=== PATIENT | male | born 1960 | race Caucasian/White ===

== ENCOUNTER 2017-03-09 13:55 | Inpatient (IN) | payer OTHER, MEDICAID ==
[~2017-03-09] VITALS: Ht 170.2 cm; Wt 98.8 kg
[2017-03-09] MEDS ORDERED: PLEASE ENTER HEIGHT AND WEIGHT MC SCH (14:30)
[2017-03-09] MEDS ORDERED: PLEASE ENTER ALLERGIES MC SCH (14:30)
[2017-03-09] MEDS ORDERED: SODIUM CHLORIDE FLUSH 10ML SYR IVF ONE (14:30)
[2017-03-09 14:54] LABS: MEAN CORPUSCULAR HGB CONC 33.5 g/dL (33.2-36.2); MEAN CORPUSCULAR VOLUME 95.7 fL (81-97); MEAN PLATELET VOLUME 7.5 fL (7.4-10.4); PLATELET COUNT 279 x10^3/uL (130-400); RED BLOOD COUNT 4.56 x10^6/uL (4.38-5.82); RED CELL DISTRIBUTION WIDTH 16.6 % (9.4-14.8)
[2017-03-09 15:04] LABS: INTERNATIONAL NORMALIZED RATIO 0.98 (0.93-1.1); PROTHROMBIN TIME 10.1 Seconds (9.6-11.5)
[2017-03-09 15:07] LABS: ALANINE AMINOTRANSFERASE 46 U/L (12-78); ALBUMIN 2.5 g/dL (3.4-5.0); ANION GAP 11 mmol/L (5-15); CALCIUM 8.3 mg/dL (8.5-10.1); CHLORIDE 91 mmol/L (98-107); CREATININE 0.72 mg/dL (0.7-1.3)
[2017-03-09 15:11] LABS: ALKALINE PHOSPHATASE 89 U/L (45-117); BILIRUBIN,TOTAL 0.9 mg/dL (0.2-1.0); TOTAL PROTEIN 8.7 g/dL (6.4-8.2)
[2017-03-09] MEDS ORDERED: MORPHINE SULFATE 4 MG/ML, 1ML ONE (15:11)
[2017-03-09 15:17] LABS: BASOPHILS # (AUTO) 0.03 x10^3/uL (0-0.1); BASOPHILS % (AUTO) 0 % (0-1); EOSINOPHILS # (AUTO) 0.03 x10^3/uL (0-0.4); EOSINOPHILS % (AUTO) 0 % (1-7); LYMPHOCYTES # (AUTO) 1.31 x10^3/uL (1-3.4); LYMPHOCYTES % (AUTO) 11 % (22-44); MD MORPH REVIEW ONLY; MONOCYTES # (AUTO) 1.72 x10^3/uL (0.2-0.8); MONOCYTES % (AUTO) 14 % (2-9); NEUTROPHILS # (AUTO) 8.95 x10^3/uL (1.8-6.8); NEUTROPHILS % (AUTO) 74 % (42-75); TOXIC GRAN 1+
[2017-03-09 15:18] LABS: <PLATELET ESTIMATE> ADEQUATE; <PLT MORPHOLOGY> NORMAL PLT MORPH; ANISOCYTOSIS 1+
[2017-03-09] MEDS ORDERED: ONDANSETRON 2MG/ML, 2ML IVPush ONE (15:30)
[2017-03-09] MEDS ORDERED: MORPHINE SULFATE 4 MG/ML, 1ML IVPush PRN (15:30)
[2017-03-09] MEDS ORDERED: MULT-658 PO (15:38)
[2017-03-09] MEDS ORDERED: XARELTO PO (15:38)
[2017-03-09] MEDS ORDERED: PIPERACILLIN/TAZO/PMX 4.5GM 100 ML IVPB ONE (16:00)
[2017-03-09] MEDS ORDERED: PIPERACILLIN/TAZO/PMX 3.375GM 50 ML ONE (16:00)
[2017-03-09] MEDS ORDERED: SODIUM CHLORIDE 0.9% 1,000ML IVBOLUS ONE (16:00)
[2017-03-09] MEDS ORDERED: VANCOMYCIN PER PHARMACY MC ONE (16:00)
[2017-03-09] MEDS ORDERED: VANCOMYCIN 2,000 MG in SODIUM CHLORIDE 0.9% 500 ML IV ONE (16:00)
[2017-03-09] MEDS ORDERED: PHARMACOKINETIC CONSULTATION MC ONE (16:00)
[2017-03-09] MEDS ORDERED: SODIUM CHLORIDE 0.9% 1,000 ML IV ONE (16:04)
[2017-03-09] MEDS ORDERED: SODIUM CHLORIDE FLUSH 10ML SYR IVF PRN (16:30)
[2017-03-09] MEDS ORDERED: ENOXAPARIN 100 MG/ML SQ ONE (17:30)
[2017-03-09] MEDS ORDERED: SODIUM CHLORIDE 0.9% 1,000 ML IV SCH (17:31)
[2017-03-09] MEDS ORDERED: ONDANSETRON 2MG/ML, 2ML IVPush PRN (18:00)
[2017-03-09] MEDS ORDERED: DOCUSATE 100 MG CAPSULE PO PRN (18:00)
[2017-03-09] MEDS: NICOTINE 14MG/24 HR PATCH.TD24 TD SCH (18:00)
[2017-03-09] MEDS ORDERED: LABETALOL 5MG/ML, 20ML IVPush PRN (18:00)
[2017-03-09] MEDS ORDERED: ENALAPRILAT 1.25 MG/ML, 2ML IVPush PRN (18:00)
[2017-03-09] MEDS ORDERED: ONDANSETRON ODT 4 MG PO PRN (18:00)
[2017-03-09 18:37] LABS: CULTURE INDICATED? YES; MICROSCOPIC INDICATED
[2017-03-09] MEDS ORDERED: WARFARIN 7.5 MG TABLET PO-COUM ONE (19:30)
[2017-03-09] MEDS: FAMOTIDINE 20 MG TABLET PO SCH (19:39)
[2017-03-09] MEDS: CLINDAMYCIN PMX 600MG/50ML 50 ML IV SCH (19:40)
[2017-03-09] MEDS: HYDROcodone/APAP 5/325 TABLET PO PRN ×2 (19:40→23:32)
[2017-03-09 21:05] VITALS: BP 129/75
[2017-03-10] MEDS: CLINDAMYCIN PMX 600MG/50ML 50 ML IV SCH ×2 (00:09→06:04)
[2017-03-10 01:35] VITALS: BP 136/66
[2017-03-10] MEDS: ENOXAPARIN 100 MG/ML SQ SCH ×2 (06:03→17:54)
[2017-03-10] MEDS: HYDROcodone/APAP 5/325 TABLET PO PRN ×4 (06:04→21:22)
[2017-03-10 06:38] VITALS: BP 116/76
[2017-03-10 06:44] LABS: BASOPHILS # (AUTO) 0.03 x10^3/uL (0-0.1); BASOPHILS % (AUTO) 0 % (0-1); EOSINOPHILS # (AUTO) 0.05 x10^3/uL (0-0.4); EOSINOPHILS % (AUTO) 1 % (1-7); LYMPHOCYTES # (AUTO) 1.15 x10^3/uL (1-3.4); LYMPHOCYTES % (AUTO) 11 % (22-44); MD NO; MEAN CORPUSCULAR HEMOGLOBIN 32.2 pg (27.5-34.5); MEAN CORPUSCULAR VOLUME 97.6 fL (81-97); MEAN PLATELET VOLUME 7.6 fL (7.4-10.4); MONOCYTES # (AUTO) 1.35 x10^3/uL (0.2-0.8); MONOCYTES % (AUTO) 13 % (2-9); NEUTROPHILS # (AUTO) 7.65 x10^3/uL (1.8-6.8); NEUTROPHILS % (AUTO) 75 % (42-75); PLATELET COUNT 201 x10^3/uL (130-400); RED CELL DISTRIBUTION WIDTH 16.5 % (9.4-14.8)
[2017-03-10 06:47] LABS: INTERNATIONAL NORMALIZED RATIO 1.15 (0.93-1.1); PROTHROMBIN TIME 11.8 Seconds (9.6-11.5)
[2017-03-10 06:52] LABS: ALBUMIN 1.8 g/dL (3.4-5.0); ANION GAP 9 mmol/L (5-15); CALCIUM 7.5 mg/dL (8.5-10.1); CHLORIDE 95 mmol/L (98-107)
[2017-03-10 06:54] LABS: ALANINE AMINOTRANSFERASE 29 U/L (12-78); ALKALINE PHOSPHATASE 65 U/L (45-117); BILIRUBIN,TOTAL 1.3 mg/dL (0.2-1.0); CREATININE 0.41 mg/dL (0.7-1.3); TOTAL PROTEIN 6.3 g/dL (6.4-8.2)
[2017-03-10] MEDS ORDERED: PIPERACILLIN/TAZO/PMX 4.5GM 100 ML IV SCH (09:00)
[2017-03-10] MEDS ORDERED: MAGNESIUM OXIDE 400 MG TABLET PO SCH (09:00)
[2017-03-10] MEDS: FAMOTIDINE 20 MG TABLET PO SCH ×2 (09:27→21:23)
[2017-03-10] MEDS ORDERED: PLEASE ENTER ALLERGIES MC SCH (09:30)
[2017-03-10] MEDS ORDERED: MAGNESIUM SULFATE PMX 4GM/100M 100 ML IV ONE (09:36)
[2017-03-10] MEDS: NEUTRA PHOS K 250 MG TABLET PO SCH ×3 (10:47→21:22)
[2017-03-10] MEDS: MAGNESIUM OXIDE 400 MG TABLET PO SCH (10:47)
[2017-03-10] MEDS: WARFARIN MODERAT DOSE PROTOCOL XX SCH (12:00)
[2017-03-10] MEDS ORDERED: CEFTAROLINE 600 MG in SODIUM CHLORIDE 0.9% 100 ML IV SCH (12:30)
[2017-03-10] MEDS: GABAPENTIN 300 MG CAPSULE PO SCH ×3 (13:55→21:23)
[2017-03-10 15:07] VITALS: BP 112/69
[2017-03-10] MEDS: PIPERACILLIN/TAZO/PMX 4.5GM 100 ML IV SCH ×2 (15:16→21:22)
[2017-03-10] MEDS: LINEZOLID PMX 600MG/300ML 300 ML IV SCH (16:02)
[2017-03-10] MEDS: NICOTINE 14MG/24 HR PATCH.TD24 TD SCH (16:41)
[2017-03-10] MEDS ORDERED: WARFARIN 7.5 MG TABLET PO-COUM ONE (18:00)
[2017-03-10 19:26] VITALS: BP 104/57
[2017-03-11 00:26] VITALS: BP 102/56
[2017-03-11] MEDS: HYDROcodone/APAP 5/325 TABLET PO PRN ×5 (03:14→22:42)
[2017-03-11] MEDS: PIPERACILLIN/TAZO/PMX 4.5GM 100 ML IV SCH ×3 (03:15→17:48)
[2017-03-11] MEDS: ENOXAPARIN 100 MG/ML SQ SCH ×2 (04:31→17:49)
[2017-03-11] MEDS: LINEZOLID PMX 600MG/300ML 300 ML IV SCH ×2 (04:31→18:22)
[2017-03-11 06:20] LABS: INTERNATIONAL NORMALIZED RATIO 1.28 (0.93-1.1); PROTHROMBIN TIME 13.1 Seconds (9.6-11.5)
[2017-03-11 06:35] VITALS: BP 104/57
[2017-03-11] MEDS: MAGNESIUM OXIDE 400 MG TABLET PO SCH (09:00)
[2017-03-11] MEDS: FAMOTIDINE 20 MG TABLET PO SCH ×2 (09:45→21:20)
[2017-03-11] MEDS: NEUTRA PHOS K 250 MG TABLET PO SCH ×3 (09:45→21:20)
[2017-03-11] MEDS: GABAPENTIN 300 MG CAPSULE PO SCH ×3 (09:45→21:20)
[2017-03-11] MEDS: WARFARIN MODERAT DOSE PROTOCOL XX SCH (12:00)
[2017-03-11 12:05] VITALS: BP 105/56
[2017-03-11] MEDS ORDERED: WARFARIN 5 MG TABLET PO-COUM ONE (18:00)
[2017-03-11] MEDS: NICOTINE 14MG/24 HR PATCH.TD24 TD SCH (18:00)
[2017-03-11 19:24] VITALS: BP 114/71
[2017-03-12] MEDS: PIPERACILLIN/TAZO/PMX 4.5GM 100 ML IV SCH ×4 (00:07→19:57)
[2017-03-12 01:29] VITALS: BP 107/55
[2017-03-12] MEDS: HYDROcodone/APAP 5/325 TABLET PO PRN ×2 (02:18→09:51)
[2017-03-12] MEDS: LINEZOLID PMX 600MG/300ML 300 ML IV SCH ×2 (04:35→18:05)
[2017-03-12] MEDS: ENOXAPARIN 100 MG/ML SQ SCH ×2 (04:35→17:00)
[2017-03-12 05:26] LABS: BASOPHILS # (AUTO) 0.04 x10^3/uL (0-0.1); BASOPHILS % (AUTO) 0 % (0-1); EOSINOPHILS % (AUTO) 1 % (1-7); LYMPHOCYTES # (AUTO) 1.65 x10^3/uL (1-3.4); LYMPHOCYTES % (AUTO) 18 % (22-44); MD NO; MEAN CORPUSCULAR HEMOGLOBIN 32.8 pg (27.5-34.5); MEAN CORPUSCULAR HGB CONC 33.7 g/dL (33.2-36.2); MEAN CORPUSCULAR VOLUME 97.1 fL (81-97); MEAN PLATELET VOLUME 8.1 fL (7.4-10.4); MONOCYTES # (AUTO) 1.37 x10^3/uL (0.2-0.8); MONOCYTES % (AUTO) 15 % (2-9); NEUTROPHILS # (AUTO) 5.91 x10^3/uL (1.8-6.8); NEUTROPHILS % (AUTO) 65 % (42-75); PLATELET COUNT 257 x10^3/uL (130-400); RED CELL DISTRIBUTION WIDTH 16.5 % (9.4-14.8)
[2017-03-12 05:27] LABS: INTERNATIONAL NORMALIZED RATIO 1.58 (0.93-1.1); PROTHROMBIN TIME 16.1 Seconds (9.6-11.5)
[2017-03-12 05:35] LABS: ALANINE AMINOTRANSFERASE 17 U/L (12-78); ALBUMIN 1.6 g/dL (3.4-5.0); ANION GAP 5 mmol/L (5-15); CALCIUM 7.3 mg/dL (8.5-10.1); CHLORIDE 100 mmol/L (98-107); CREATININE 0.38 mg/dL (0.7-1.3)
[2017-03-12 05:37] LABS: ALKALINE PHOSPHATASE 62 U/L (45-117); BILIRUBIN,TOTAL 0.3 mg/dL (0.2-1.0); TOTAL PROTEIN 6.2 g/dL (6.4-8.2)
[2017-03-12 07:43] VITALS: BP 117/72
[2017-03-12] MEDS: FAMOTIDINE 20 MG TABLET PO SCH ×2 (09:53→21:17)
[2017-03-12] MEDS: GABAPENTIN 300 MG CAPSULE PO SCH ×3 (09:53→20:59)
[2017-03-12] MEDS: NEUTRA PHOS K 250 MG TABLET PO SCH ×3 (09:53→20:59)
[2017-03-12] MEDS: MAGNESIUM OXIDE 400 MG TABLET PO SCH (09:53)
[2017-03-12] MEDS: WARFARIN MODERAT DOSE PROTOCOL XX SCH (12:00)
[2017-03-12 13:00] VITALS: BP 102/60
[2017-03-12] MEDS ORDERED: DIPHENHYDRAMINE 25 MG CAPSULE PO ONE (14:00)
[2017-03-12] MEDS ORDERED: PHYTONADIONE 10 MG/ML, 1ML IM ONE (15:00)
[2017-03-12] MEDS ORDERED: MAGNESIUM CITRATE 300ML ORAL SOL PO ONE (16:00)
[2017-03-12] MEDS ORDERED: LORazepam 2 MG/ML, 1ML IVPush ONE (17:30)
[2017-03-12] MEDS ORDERED: WARFARIN 7.5 MG TABLET PO-COUM ONE (18:00)
[2017-03-12] MEDS: NICOTINE 14MG/24 HR PATCH.TD24 TD SCH (18:00)
[2017-03-12 20:17] VITALS: BP 120/78
[2017-03-13] MEDS: LORazepam 1MG TABLET PO PRN (00:24)
[2017-03-13 01:12] VITALS: BP 123/78
[2017-03-13] MEDS: PIPERACILLIN/TAZO/PMX 4.5GM 100 ML IV SCH ×4 (02:12→23:49)
[2017-03-13] MEDS: LINEZOLID PMX 600MG/300ML 300 ML IV SCH ×2 (03:57→16:00)
[2017-03-13 05:17] LABS: BASOPHILS # (AUTO) 0.05 x10^3/uL (0-0.1); BASOPHILS % (AUTO) 1 % (0-1); EOSINOPHILS % (AUTO) 3 % (1-7); LYMPHOCYTES # (AUTO) 1.82 x10^3/uL (1-3.4); LYMPHOCYTES % (AUTO) 25 % (22-44); MD NO; MEAN CORPUSCULAR HEMOGLOBIN 32.3 pg (27.5-34.5); MEAN CORPUSCULAR HGB CONC 33.2 g/dL (33.2-36.2); MEAN CORPUSCULAR VOLUME 97.3 fL (81-97); MEAN PLATELET VOLUME 7.6 fL (7.4-10.4); MONOCYTES # (AUTO) 1.21 x10^3/uL (0.2-0.8); MONOCYTES % (AUTO) 16 % (2-9); NEUTROPHILS % (AUTO) 56 % (42-75); PLATELET COUNT 299 x10^3/uL (130-400); RED CELL DISTRIBUTION WIDTH 16.9 % (9.4-14.8)
[2017-03-13 05:27] LABS: INTERNATIONAL NORMALIZED RATIO 1.11 (0.93-1.1); PROTHROMBIN TIME 11.4 Seconds (9.6-11.5)
[2017-03-13 05:33] LABS: CHLORIDE 100 mmol/L (98-107)
[2017-03-13 05:41] LABS: ALANINE AMINOTRANSFERASE 19 U/L (12-78); ALBUMIN 1.5 g/dL (3.4-5.0); ALKALINE PHOSPHATASE 51 U/L (45-117); ANION GAP 6 mmol/L (5-15); BILIRUBIN,TOTAL 0.5 mg/dL (0.2-1.0); CALCIUM 7.8 mg/dL (8.5-10.1); CREATININE 0.35 mg/dL (0.7-1.3); TOTAL PROTEIN 6.2 g/dL (6.4-8.2)
[2017-03-13 07:45] VITALS: BP 130/82
[2017-03-13] MEDS: MAGNESIUM OXIDE 400 MG TABLET PO SCH (07:56)
[2017-03-13] MEDS: GABAPENTIN 300 MG CAPSULE PO SCH ×3 (07:56→23:50)
[2017-03-13] MEDS: NEUTRA PHOS K 250 MG TABLET PO SCH ×3 (07:57→23:49)
[2017-03-13] MEDS: FAMOTIDINE 20 MG TABLET PO SCH ×2 (07:57→23:50)
[2017-03-13] MEDS ORDERED: MIDAZOLAM 1 MG/ML, 2ML ONE (09:05)
[2017-03-13] MEDS ORDERED: FENTANYL PF 100 MCG/2ML ONE ×2 (09:05→11:01)
[2017-03-13] MEDS ORDERED: PROPOFOL 10 MG/ML, 20ML ONE (09:25)
[2017-03-13] MEDS ORDERED: GLYCOPYRROLATE 0.2MG/1ML, 5ML ONE (09:25)
[2017-03-13] MEDS ORDERED: NEOSTIGMINE 1 MG/ML, 10ML ONE (09:25)
[2017-03-13] MEDS ORDERED: ONDANSETRON 2MG/ML, 2ML ONE ×2 (09:25→10:44)
[2017-03-13] MEDS ORDERED: SUCCINYLCHOLINE 20 MG/ML, 10ML ONE (09:25)
[2017-03-13] MEDS ORDERED: ROCURONIUM 10 MG/ML,10ML ONE (09:25)
[2017-03-13] MEDS ORDERED: EPHEDRINE 50 MG/ML, 1ML IVPush PRN (11:00)
[2017-03-13] MEDS ORDERED: KETOROLAC 30 MG/1 ML IV PRN (11:00)
[2017-03-13] MEDS ORDERED: METOPROLOL 1 MG/ML, 5ML IV PRN (11:00)
[2017-03-13] MEDS ORDERED: MIDAZOLAM 1 MG/ML, 2ML IV PRN (11:00)
[2017-03-13] MEDS ORDERED: MEPERIDINE/PF 25MG/0.5ML IVPush PRN (11:00)
[2017-03-13] MEDS ORDERED: FENTANYL PF 100 MCG/2ML IV PRN (11:00)
[2017-03-13] MEDS ORDERED: DIAZEPAM 5 MG/ML, 2ML IVPush PRN (11:00)
[2017-03-13] MEDS ORDERED: LABETALOL 5MG/ML, 20ML IV PRN (11:00)
[2017-03-13] MEDS ORDERED: ALBUTEROL SULFATE 2.5 MG/3 ML NPPB PRN (11:00)
[2017-03-13] MEDS ORDERED: ALBUTEROL/IPRATROPIUM 2.5MG/0.5MG, 3 ML NPPB PRN (11:00)
[2017-03-13] MEDS ORDERED: HYDROmorphone 1 MG/ML, 1ML IV PRN (11:00)
[2017-03-13] MEDS ORDERED: ONDANSETRON 2MG/ML, 2ML IVPush PRN (11:00)
[2017-03-13] MEDS ORDERED: PROMETHAZINE 25 MG/ML, 1ML IV PRN (11:00)
[2017-03-13] MEDS ORDERED: hydrALAzine 20 MG/ML, 1ML IV PRN (11:00)
[2017-03-13] MEDS ORDERED: HYDROmorphone 2 MG/ML, 1ML ONE (11:01)
[2017-03-13 12:55] VITALS: BP 138/90
[2017-03-13] MEDS: NICOTINE 14MG/24 HR PATCH.TD24 TD SCH (18:00)
[2017-03-13 19:55] VITALS: BP 111/75
[2017-03-14] MEDS ORDERED: SODIUM CHLORIDE 0.9% 1,000 ML IV SCH
[2017-03-14 00:24] VITALS: BP 115/75
[2017-03-14] MEDS: LORazepam 1MG TABLET PO PRN ×3 (04:09→22:30)
[2017-03-14 04:57] VITALS: BP 129/79
[2017-03-14] MEDS: PIPERACILLIN/TAZO/PMX 4.5GM 100 ML IV SCH ×3 (05:22→17:32)
[2017-03-14] MEDS ORDERED: MIDAZOLAM 1 MG/ML, 2ML ONE (06:36)
[2017-03-14] MEDS ORDERED: FENTANYL PF 250 MCG/5ML ONE (06:36)
[2017-03-14] MEDS ORDERED: ROCURONIUM 10 MG/ML,10ML ONE (07:46)
[2017-03-14] MEDS ORDERED: GLYCOPYRROLATE 0.2MG/1ML, 5ML ONE (07:46)
[2017-03-14] MEDS ORDERED: CEFAZOLIN 1,000 MG ONE (07:46)
[2017-03-14] MEDS ORDERED: PROPOFOL 10 MG/ML, 20ML ONE (07:46)
[2017-03-14] MEDS ORDERED: SUCCINYLCHOLINE 20 MG/ML, 10ML ONE (07:46)
[2017-03-14] MEDS ORDERED: ONDANSETRON 2MG/ML, 2ML ONE (07:46)
[2017-03-14] MEDS ORDERED: DEXAMETHASONE 4 MG/ML, 1ML ONE (07:46)
[2017-03-14] MEDS ORDERED: NEOSTIGMINE 1 MG/ML, 10ML ONE (07:46)
[2017-03-14] MEDS ORDERED: MEPERIDINE/PF 25MG/0.5ML IVPush PRN (08:00)
[2017-03-14] MEDS ORDERED: hydrALAzine 20 MG/ML, 1ML IV PRN (08:00)
[2017-03-14] MEDS ORDERED: METOPROLOL 1 MG/ML, 5ML IV PRN (08:00)
[2017-03-14] MEDS ORDERED: PROMETHAZINE 25 MG/ML, 1ML IV PRN (08:00)
[2017-03-14] MEDS ORDERED: ALBUTEROL SULFATE 2.5 MG/3 ML NPPB PRN (08:00)
[2017-03-14] MEDS ORDERED: FENTANYL PF 100 MCG/2ML IV PRN (08:00)
[2017-03-14] MEDS ORDERED: HYDROmorphone 1 MG/ML, 1ML IV PRN (08:00)
[2017-03-14] MEDS ORDERED: OXYcodone 5 MG/5 ML ORAL.SOL UDC PO PRN (08:00)
[2017-03-14] MEDS ORDERED: ACETAMINOPHEN 325 MG TABLET PO PRN (08:00)
[2017-03-14] MEDS ORDERED: LORazepam 2 MG/ML, 1ML IVPush PRN (08:00)
[2017-03-14] MEDS: FAMOTIDINE 20 MG TABLET PO SCH ×2 (09:48→21:36)
[2017-03-14] MEDS: GABAPENTIN 300 MG CAPSULE PO SCH ×3 (09:48→21:36)
[2017-03-14] MEDS: NEUTRA PHOS K 250 MG TABLET PO SCH ×3 (09:48→21:36)
[2017-03-14] MEDS: MAGNESIUM OXIDE 400 MG TABLET PO SCH (09:48)
[2017-03-14 10:00] VITALS: BP 141/88
[2017-03-14 13:20] VITALS: BP 123/75
[2017-03-14] MEDS: NICOTINE 14MG/24 HR PATCH.TD24 TD SCH (17:28)
[2017-03-14 20:20] VITALS: BP 101/63
[2017-03-14 23:54] VITALS: BP 118/70
[2017-03-15] MEDS: PIPERACILLIN/TAZO/PMX 4.5GM 100 ML IV SCH ×4 (02:43→22:16)
[2017-03-15] MEDS: LORazepam 1MG TABLET PO PRN ×4 (03:16→22:17)
[2017-03-15 03:49] VITALS: BP 124/76
[2017-03-15 06:40] VITALS: BP 121/70
[2017-03-15] MEDS: MAGNESIUM OXIDE 400 MG TABLET PO SCH (08:19)
[2017-03-15] MEDS: GABAPENTIN 300 MG CAPSULE PO SCH ×3 (08:19→22:16)
[2017-03-15] MEDS: FAMOTIDINE 20 MG TABLET PO SCH ×2 (08:19→22:16)
[2017-03-15] MEDS: NEUTRA PHOS K 250 MG TABLET PO SCH ×3 (08:20→22:16)
[2017-03-15 14:00] VITALS: BP 122/72
[2017-03-15] MEDS: NICOTINE 14MG/24 HR PATCH.TD24 TD SCH (15:23)
[2017-03-15 21:59] VITALS: BP 128/82
[2017-03-16] MEDS: LORazepam 1MG TABLET PO PRN ×5 (02:38→21:23)
[2017-03-16] MEDS: PIPERACILLIN/TAZO/PMX 4.5GM 100 ML IV SCH ×4 (03:23→21:23)
[2017-03-16 03:39] VITALS: BP 136/86
[2017-03-16] MEDS: NEUTRA PHOS K 250 MG TABLET PO SCH ×3 (08:35→21:22)
[2017-03-16] MEDS: MAGNESIUM OXIDE 400 MG TABLET PO SCH (08:35)
[2017-03-16] MEDS: FAMOTIDINE 20 MG TABLET PO SCH ×2 (08:35→21:22)
[2017-03-16] MEDS: GABAPENTIN 300 MG CAPSULE PO SCH ×3 (08:35→21:21)
[2017-03-16 08:37] VITALS: BP 141/87
[2017-03-16 14:41] VITALS: BP 135/76
[2017-03-16] MEDS: NICOTINE 14MG/24 HR PATCH.TD24 TD SCH (16:41)
[2017-03-16 20:00] VITALS: BP 129/75
[2017-03-17] MEDS: LORazepam 1MG TABLET PO PRN ×5 (02:52→20:31)
[2017-03-17 02:58] VITALS: BP 129/70
[2017-03-17] MEDS: PIPERACILLIN/TAZO/PMX 4.5GM 100 ML IV SCH ×4 (04:00→22:47)
[2017-03-17 04:56] LABS: BASOPHILS % (AUTO) 1 % (0-1); EOSINOPHILS # (AUTO) 0.22 x10^3/uL (0-0.4); EOSINOPHILS % (AUTO) 3 % (1-7); LYMPHOCYTES # (AUTO) 2.12 x10^3/uL (1-3.4); LYMPHOCYTES % (AUTO) 28 % (22-44); MD NO; MEAN CORPUSCULAR HEMOGLOBIN 32.4 pg (27.5-34.5); MEAN CORPUSCULAR HGB CONC 33.3 g/dL (33.2-36.2); MEAN CORPUSCULAR VOLUME 97.2 fL (81-97); MEAN PLATELET VOLUME 7.4 fL (7.4-10.4); MONOCYTES # (AUTO) 1.02 x10^3/uL (0.2-0.8); MONOCYTES % (AUTO) 13 % (2-9); NEUTROPHILS # (AUTO) 4.25 x10^3/uL (1.8-6.8); NEUTROPHILS % (AUTO) 55 % (42-75); PLATELET COUNT 426 x10^3/uL (130-400); RED BLOOD COUNT 2.94 x10^6/uL (4.38-5.82); RED CELL DISTRIBUTION WIDTH 16.2 % (9.4-14.8)
[2017-03-17 04:59] LABS: ALANINE AMINOTRANSFERASE 23 U/L (12-78); ALBUMIN 1.6 g/dL (3.4-5.0); ANION GAP 7 mmol/L (5-15); CALCIUM 8.2 mg/dL (8.5-10.1); CHLORIDE 100 mmol/L (98-107)
[2017-03-17 05:01] LABS: ALKALINE PHOSPHATASE 59 U/L (45-117); BILIRUBIN,TOTAL 0.2 mg/dL (0.2-1.0); TOTAL PROTEIN 6.2 g/dL (6.4-8.2)
[2017-03-17 07:09] VITALS: BP 147/82
[2017-03-17] MEDS: GABAPENTIN 300 MG CAPSULE PO SCH ×3 (10:31→20:31)
[2017-03-17] MEDS: FAMOTIDINE 20 MG TABLET PO SCH ×2 (10:31→20:31)
[2017-03-17] MEDS: MAGNESIUM OXIDE 400 MG TABLET PO SCH (10:31)
[2017-03-17] MEDS: NEUTRA PHOS K 250 MG TABLET PO SCH ×3 (10:31→20:31)
[2017-03-17 11:58] LABS: HCT (SEDRATE) 29.7 % (39.2-51.8)
[2017-03-17 14:00] VITALS: BP 127/73
[2017-03-17] MEDS: NICOTINE 14MG/24 HR PATCH.TD24 TD SCH (18:00)
[2017-03-17 19:34] VITALS: BP 138/80
[2017-03-18] MEDS: LORazepam 1MG TABLET PO PRN ×6 (01:09→21:33)
[2017-03-18] MEDS: PIPERACILLIN/TAZO/PMX 4.5GM 100 ML IV SCH ×4 (04:22→21:39)
[2017-03-18 05:00] VITALS: BP 117/69
[2017-03-18 09:10] VITALS: BP 151/80
[2017-03-18] MEDS: MAGNESIUM OXIDE 400 MG TABLET PO SCH (09:27)
[2017-03-18] MEDS: FAMOTIDINE 20 MG TABLET PO SCH ×2 (09:27→21:33)
[2017-03-18] MEDS: GABAPENTIN 300 MG CAPSULE PO SCH ×3 (09:27→21:33)
[2017-03-18] MEDS: NEUTRA PHOS K 250 MG TABLET PO SCH ×3 (09:28→21:33)
[2017-03-18] MEDS ORDERED: ENOXAPARIN 40 MG/0.4 ML SQ SCH (13:00)
[2017-03-18 17:33] VITALS: BP 123/69
[2017-03-18] MEDS: NICOTINE 14MG/24 HR PATCH.TD24 TD SCH (17:36)
[2017-03-18 20:51] VITALS: BP 125/77
[2017-03-19] MEDS: LORazepam 1MG TABLET PO PRN ×6 (01:32→22:46)
[2017-03-19 01:36] VITALS: BP 116/69
[2017-03-19] MEDS: PIPERACILLIN/TAZO/PMX 4.5GM 100 ML IV SCH ×4 (04:37→21:33)
[2017-03-19] MEDS: FAMOTIDINE 20 MG TABLET PO SCH ×2 (08:06→21:32)
[2017-03-19] MEDS: NEUTRA PHOS K 250 MG TABLET PO SCH ×3 (08:06→21:32)
[2017-03-19] MEDS: MAGNESIUM OXIDE 400 MG TABLET PO SCH (08:06)
[2017-03-19] MEDS: GABAPENTIN 300 MG CAPSULE PO SCH ×3 (08:06→21:32)
[2017-03-19] MEDS ORDERED: Enoxaparin 1 mg/kg protocol SQ SCH (10:00)
[2017-03-19 10:15] VITALS: BP 121/60
[2017-03-19] MEDS ORDERED: ENOXAPARIN 100 MG/ML SQ SCH (10:30)
[2017-03-19 11:16] LABS: INTERNATIONAL NORMALIZED RATIO 1.04 (0.93-1.1); PROTHROMBIN TIME 10.7 Seconds (9.6-11.5)
[2017-03-19 12:04] VITALS: BP 116/73
[2017-03-19] MEDS: ENOXAPARIN 100 MG/ML SQ SCH (12:59)
[2017-03-19] MEDS ORDERED: WARFARIN 7.5 MG TABLET PO-COUM ONE (18:00)
[2017-03-19] MEDS: NICOTINE 14MG/24 HR PATCH.TD24 TD SCH (18:14)
[2017-03-19 20:39] VITALS: BP 110/67
[2017-03-20] MEDS: ENOXAPARIN 100 MG/ML SQ SCH ×2 (02:37→15:00)
[2017-03-20] MEDS: LORazepam 1MG TABLET PO PRN ×6 (02:51→22:54)
[2017-03-20 03:01] VITALS: BP 117/76
[2017-03-20] MEDS: PIPERACILLIN/TAZO/PMX 4.5GM 100 ML IV SCH ×4 (03:48→21:48)
[2017-03-20 05:50] LABS: INTERNATIONAL NORMALIZED RATIO 1.04 (0.93-1.1); PROTHROMBIN TIME 10.7 Seconds (9.6-11.5)
[2017-03-20 05:53] LABS: BASOPHILS # (AUTO) 0.08 x10^3/uL (0-0.1); BASOPHILS % (AUTO) 1 % (0-1); EOSINOPHILS # (AUTO) 0.23 x10^3/uL (0-0.4); EOSINOPHILS % (AUTO) 3 % (1-7); LYMPHOCYTES # (AUTO) 2.32 x10^3/uL (1-3.4); LYMPHOCYTES % (AUTO) 30 % (22-44); MD NO; MEAN CORPUSCULAR HEMOGLOBIN 31.8 pg (27.5-34.5); MEAN CORPUSCULAR HGB CONC 33.1 g/dL (33.2-36.2); MEAN CORPUSCULAR VOLUME 95.9 fL (81-97); MEAN PLATELET VOLUME 7.5 fL (7.4-10.4); MONOCYTES # (AUTO) 0.73 x10^3/uL (0.2-0.8); MONOCYTES % (AUTO) 10 % (2-9); NEUTROPHILS # (AUTO) 4.33 x10^3/uL (1.8-6.8); NEUTROPHILS % (AUTO) 56 % (42-75); PLATELET COUNT 549 x10^3/uL (130-400); RED BLOOD COUNT 3.47 x10^6/uL (4.38-5.82); RED CELL DISTRIBUTION WIDTH 16.3 % (9.4-14.8)
[2017-03-20 05:59] LABS: ALBUMIN 2.1 g/dL (3.4-5.0); ANION GAP 6 mmol/L (5-15); CALCIUM 8.5 mg/dL (8.5-10.1); CHLORIDE 99 mmol/L (98-107)
[2017-03-20 06:04] LABS: ALANINE AMINOTRANSFERASE 20 U/L (12-78); ALKALINE PHOSPHATASE 66 U/L (45-117); BILIRUBIN,TOTAL 0.4 mg/dL (0.2-1.0); CREATININE 0.54 mg/dL (0.7-1.3); TOTAL PROTEIN 7.8 g/dL (6.4-8.2)
[2017-03-20 08:20] VITALS: BP 106/56
[2017-03-20] MEDS: MAGNESIUM OXIDE 400 MG TABLET PO SCH (09:35)
[2017-03-20] MEDS: FAMOTIDINE 20 MG TABLET PO SCH ×2 (09:35→21:48)
[2017-03-20] MEDS: NEUTRA PHOS K 250 MG TABLET PO SCH ×3 (09:35→21:48)
[2017-03-20] MEDS: GABAPENTIN 300 MG CAPSULE PO SCH ×3 (09:35→21:48)
[2017-03-20 13:41] VITALS: BP 109/70
[2017-03-20] MEDS: NICOTINE 14MG/24 HR PATCH.TD24 TD SCH (16:48)
[2017-03-20] MEDS ORDERED: WARFARIN 7.5 MG TABLET PO-COUM ONE (17:00)
[2017-03-20 22:48] VITALS: BP 116/76
[2017-03-21] MEDS: ENOXAPARIN 100 MG/ML SQ SCH ×2 (02:43→16:46)
[2017-03-21 02:50] VITALS: BP 126/83
[2017-03-21] MEDS: PIPERACILLIN/TAZO/PMX 4.5GM 100 ML IV SCH ×3 (04:03→16:50)
[2017-03-21] MEDS: LORazepam 1MG TABLET PO PRN ×5 (04:08→20:47)
[2017-03-21 05:44] LABS: INTERNATIONAL NORMALIZED RATIO 1.09 (0.93-1.1); PROTHROMBIN TIME 11.2 Seconds (9.6-11.5)
[2017-03-21] MEDS: FAMOTIDINE 20 MG TABLET PO SCH ×2 (08:26→20:47)
[2017-03-21] MEDS: GABAPENTIN 300 MG CAPSULE PO SCH ×3 (08:26→20:47)
[2017-03-21] MEDS: MAGNESIUM OXIDE 400 MG TABLET PO SCH (08:26)
[2017-03-21] MEDS: NEUTRA PHOS K 250 MG TABLET PO SCH ×3 (08:27→20:47)
[2017-03-21 08:30] VITALS: BP 119/82
[2017-03-21] MEDS: WARFARIN MODERAT DOSE PROTOCOL XX SCH (12:12)
[2017-03-21 14:30] VITALS: BP 106/66
[2017-03-21] MEDS: NICOTINE 14MG/24 HR PATCH.TD24 TD SCH (16:51)
[2017-03-21] MEDS ORDERED: WARFARIN 5 MG TABLET PO-COUM SCH (18:00)
[2017-03-21 19:26] VITALS: BP 113/68
[2017-03-22] MEDS: PIPERACILLIN/TAZO/PMX 4.5GM 100 ML IV SCH ×5 (00:19→22:13)
[2017-03-22 00:26] VITALS: BP 119/77
[2017-03-22] MEDS: ENOXAPARIN 100 MG/ML SQ SCH ×2 (02:06→15:12)
[2017-03-22 05:13] LABS: INTERNATIONAL NORMALIZED RATIO 1.13 (0.93-1.1); PROTHROMBIN TIME 11.6 Seconds (9.6-11.5)
[2017-03-22 07:28] VITALS: BP 122/77
[2017-03-22] MEDS: GABAPENTIN 300 MG CAPSULE PO SCH ×3 (07:54→22:13)
[2017-03-22] MEDS: LORazepam 1MG TABLET PO PRN ×3 (07:54→17:42)
[2017-03-22] MEDS: NEUTRA PHOS K 250 MG TABLET PO SCH ×3 (07:54→22:13)
[2017-03-22] MEDS: FAMOTIDINE 20 MG TABLET PO SCH ×2 (07:55→22:13)
[2017-03-22] MEDS: MAGNESIUM OXIDE 400 MG TABLET PO SCH (07:55)
[2017-03-22] MEDS: WARFARIN MODERAT DOSE PROTOCOL XX SCH (11:39)
[2017-03-22 14:30] VITALS: BP 108/70
[2017-03-22] MEDS: NICOTINE 14MG/24 HR PATCH.TD24 TD SCH (17:42)
[2017-03-22] MEDS ORDERED: WARFARIN 10 MG TABLET PO-COUM SCH (18:00)
[2017-03-22 19:27] VITALS: BP 119/73
[2017-03-22] MEDS: TEMAZEPAM 15 MG CAPSULE PO PRN (22:13)
[2017-03-23 00:21] VITALS: BP 150/84
[2017-03-23] MEDS: ENOXAPARIN 100 MG/ML SQ SCH ×2 (01:59→14:16)
[2017-03-23] MEDS: PIPERACILLIN/TAZO/PMX 4.5GM 100 ML IV SCH ×4 (04:07→20:05)
[2017-03-23 05:36] LABS: INTERNATIONAL NORMALIZED RATIO 1.13 (0.93-1.1); PROTHROMBIN TIME 11.6 Seconds (9.6-11.5)
[2017-03-23 07:22] VITALS: BP 123/66
[2017-03-23] MEDS: FAMOTIDINE 20 MG TABLET PO SCH ×2 (08:10→19:59)
[2017-03-23] MEDS: NEUTRA PHOS K 250 MG TABLET PO SCH ×3 (08:10→19:59)
[2017-03-23] MEDS: MAGNESIUM OXIDE 400 MG TABLET PO SCH (08:10)
[2017-03-23] MEDS: GABAPENTIN 300 MG CAPSULE PO SCH ×3 (08:10→19:59)
[2017-03-23] MEDS: LORazepam 1MG TABLET PO PRN ×2 (09:48→16:06)
[2017-03-23] MEDS: WARFARIN MODERAT DOSE PROTOCOL XX SCH (11:39)
[2017-03-23 14:30] VITALS: BP 142/84
[2017-03-23] MEDS: NICOTINE 14MG/24 HR PATCH.TD24 TD SCH (18:00)
[2017-03-23] MEDS ORDERED: WARFARIN 7.5 MG TABLET PO-COUM SCH (18:00)
[2017-03-23 19:20] VITALS: BP 118/65
[2017-03-23] MEDS: TEMAZEPAM 15 MG CAPSULE PO PRN (23:00)
[2017-03-24] MEDS: ENOXAPARIN 100 MG/ML SQ SCH ×2 (02:57→14:16)
[2017-03-24] MEDS: PIPERACILLIN/TAZO/PMX 4.5GM 100 ML IV SCH ×3 (02:57→16:02)
[2017-03-24 04:00] VITALS: BP 119/73
[2017-03-24 05:27] LABS: INTERNATIONAL NORMALIZED RATIO 1.4 (0.93-1.1); PROTHROMBIN TIME 14.3 Seconds (9.6-11.5)
[2017-03-24] MEDS: LORazepam 1MG TABLET PO PRN ×2 (05:54→14:16)
[2017-03-24] MEDS: MAGNESIUM OXIDE 400 MG TABLET PO SCH ×2 (09:00→10:02)
[2017-03-24] MEDS: NEUTRA PHOS K 250 MG TABLET PO SCH ×4 (09:00→21:43)
[2017-03-24 09:18] VITALS: BP 114/64
[2017-03-24] MEDS: GABAPENTIN 300 MG CAPSULE PO SCH ×3 (10:02→21:44)
[2017-03-24] MEDS: FAMOTIDINE 20 MG TABLET PO SCH ×2 (10:02→21:43)
[2017-03-24] MEDS: WARFARIN MODERAT DOSE PROTOCOL XX SCH (12:00)
[2017-03-24 14:07] VITALS: BP 124/70
[2017-03-24] MEDS: NICOTINE 14MG/24 HR PATCH.TD24 TD SCH (18:00)
[2017-03-24] MEDS ORDERED: WARFARIN 10 MG TABLET PO-COUM ONE (18:00)
[2017-03-24 19:42] VITALS: BP 122/72
[2017-03-25 02:25] VITALS: BP 106/68
[2017-03-25] MEDS: PIPERACILLIN/TAZO 4.5 GM in SODIUM CHLORIDE 0.9% 100 ML IV SCH ×4 (03:08→22:09)
[2017-03-25] MEDS: ENOXAPARIN 100 MG/ML SQ SCH ×2 (03:08→14:55)
[2017-03-25] MEDS: DIPHENHYDRAMINE 50 MG CAPSULE PO PRN (03:49)
[2017-03-25 05:42] LABS: BASOPHILS # (AUTO) 0.09 x10^3/uL (0-0.1); BASOPHILS % (AUTO) 1 % (0-1); EOSINOPHILS # (AUTO) 0.42 x10^3/uL (0-0.4); EOSINOPHILS % (AUTO) 6 % (1-7); LYMPHOCYTES # (AUTO) 1.85 x10^3/uL (1-3.4); LYMPHOCYTES % (AUTO) 28 % (22-44); MD NO; MEAN CORPUSCULAR HEMOGLOBIN 31.1 pg (27.5-34.5); MEAN CORPUSCULAR HGB CONC 32.7 g/dL (33.2-36.2); MEAN CORPUSCULAR VOLUME 94.9 fL (81-97); MEAN PLATELET VOLUME 7.9 fL (7.4-10.4); MONOCYTES # (AUTO) 0.85 x10^3/uL (0.2-0.8); MONOCYTES % (AUTO) 13 % (2-9); NEUTROPHILS # (AUTO) 3.38 x10^3/uL (1.8-6.8); NEUTROPHILS % (AUTO) 51 % (42-75); PLATELET COUNT 637 x10^3/uL (130-400); RED BLOOD COUNT 3.47 x10^6/uL (4.38-5.82); RED CELL DISTRIBUTION WIDTH 16.4 % (9.4-14.8)
[2017-03-25 05:50] LABS: INTERNATIONAL NORMALIZED RATIO 1.62 (0.93-1.1); PROTHROMBIN TIME 16.7 Seconds (9.6-11.5)
[2017-03-25 05:57] LABS: CHLORIDE 102 mmol/L (98-107)
[2017-03-25 06:37] LABS: ALANINE AMINOTRANSFERASE 16 U/L (12-78); ALBUMIN 2.3 g/dL (3.4-5.0); ALKALINE PHOSPHATASE 103 U/L (45-117); ANION GAP 8 mmol/L (5-15); BILIRUBIN,TOTAL 0.7 mg/dL (0.2-1.0); CALCIUM 9.2 mg/dL (8.5-10.1); CREATININE 0.48 mg/dL (0.7-1.3); TOTAL PROTEIN 8.1 g/dL (6.4-8.2)
[2017-03-25 09:00] VITALS: BP 121/75
[2017-03-25] MEDS: MAGNESIUM OXIDE 400 MG TABLET PO SCH (09:00)
[2017-03-25] MEDS: NEUTRA PHOS K 250 MG TABLET PO SCH ×4 (09:00→21:00)
[2017-03-25] MEDS: GABAPENTIN 300 MG CAPSULE PO SCH ×3 (09:08→20:42)
[2017-03-25] MEDS: FAMOTIDINE 20 MG TABLET PO SCH ×2 (09:09→20:42)
[2017-03-25] MEDS ORDERED: PIPERACILLIN/TAZO 4.5 GM in SODIUM CHLORIDE 0.9% 100 ML IV SCH (10:00)
[2017-03-25] MEDS: WARFARIN MODERAT DOSE PROTOCOL XX SCH (12:00)
[2017-03-25] MEDS ORDERED: morphine SULFATE 10 MG/ML, 1ML IVPush ONE (14:00)
[2017-03-25 14:55] VITALS: BP 114/55
[2017-03-25] MEDS: LORazepam 1MG TABLET PO PRN (17:14)
[2017-03-25] MEDS: NICOTINE 14MG/24 HR PATCH.TD24 TD SCH (17:15)
[2017-03-25] MEDS ORDERED: WARFARIN 7.5 MG TABLET PO-COUM ONE (18:00)
[2017-03-25 19:37] VITALS: BP 113/68
[2017-03-26] MEDS: ENOXAPARIN 100 MG/ML SQ SCH ×2 (02:25→14:00)
[2017-03-26 02:26] VITALS: BP 123/64
[2017-03-26] MEDS: PIPERACILLIN/TAZO 4.5 GM in SODIUM CHLORIDE 0.9% 100 ML IV SCH ×4 (04:19→21:55)
[2017-03-26 05:17] LABS: INTERNATIONAL NORMALIZED RATIO 1.85 (0.93-1.1)
[2017-03-26 08:55] VITALS: BP 107/57
[2017-03-26] MEDS: NEUTRA PHOS K 250 MG TABLET PO SCH ×3 (09:00→21:00)
[2017-03-26] MEDS: MAGNESIUM OXIDE 400 MG TABLET PO SCH (09:00)
[2017-03-26] MEDS: GABAPENTIN 300 MG CAPSULE PO SCH ×3 (09:45→21:54)
[2017-03-26] MEDS: FAMOTIDINE 20 MG TABLET PO SCH ×2 (09:45→21:54)
[2017-03-26] MEDS: LORazepam 1MG TABLET PO PRN ×2 (09:55→16:28)
[2017-03-26] MEDS: WARFARIN MODERAT DOSE PROTOCOL XX SCH (12:00)
[2017-03-26 15:51] VITALS: BP 119/70
[2017-03-26] MEDS: NICOTINE 14MG/24 HR PATCH.TD24 TD SCH (18:00)
[2017-03-26] MEDS ORDERED: WARFARIN 7.5 MG TABLET PO-COUM ONE (18:00)
[2017-03-26 19:50] VITALS: BP 118/73
[2017-03-27] MEDS: ENOXAPARIN 100 MG/ML SQ SCH ×2 (01:26→22:45)
[2017-03-27] MEDS: LORazepam 1MG TABLET PO PRN ×4 (04:15→22:43)
[2017-03-27] MEDS: PIPERACILLIN/TAZO 4.5 GM in SODIUM CHLORIDE 0.9% 100 ML IV SCH ×4 (04:15→21:57)
[2017-03-27 04:16] VITALS: BP 141/89
[2017-03-27 05:47] LABS: INTERNATIONAL NORMALIZED RATIO 1.36 (0.93-1.1); PROTHROMBIN TIME 14.1 Seconds (9.6-11.5)
[2017-03-27 07:54] VITALS: BP 113/71
[2017-03-27] MEDS: FAMOTIDINE 20 MG TABLET PO SCH ×2 (09:00→19:33)
[2017-03-27] MEDS: NEUTRA PHOS K 250 MG TABLET PO SCH ×3 (09:00→21:00)
[2017-03-27] MEDS: GABAPENTIN 300 MG CAPSULE PO SCH ×3 (09:00→21:00)
[2017-03-27] MEDS: MAGNESIUM OXIDE 400 MG TABLET PO SCH (09:00)
[2017-03-27] MEDS ORDERED: FENTANYL PF 100 MCG/2ML ONE ×2 (11:25→12:53)
[2017-03-27] MEDS ORDERED: MIDAZOLAM 1 MG/ML, 2ML ONE (11:25)
[2017-03-27] MEDS: WARFARIN MODERAT DOSE PROTOCOL XX SCH (12:00)
[2017-03-27] MEDS ORDERED: ONDANSETRON 2MG/ML, 2ML ONE ×2 (12:21→12:22)
[2017-03-27] MEDS ORDERED: DEXAMETHASONE 4 MG/ML, 1ML ONE ×2 (12:21→12:22)
[2017-03-27] MEDS ORDERED: PROPOFOL 10 MG/ML, 20ML ONE (12:21)
[2017-03-27] MEDS ORDERED: PROMETHAZINE 25 MG/ML, 1ML IV PRN (12:30)
[2017-03-27] MEDS ORDERED: LABETALOL 5MG/ML, 20ML IV PRN (12:30)
[2017-03-27] MEDS ORDERED: MEPERIDINE/PF 25MG/0.5ML IVPush PRN (12:30)
[2017-03-27] MEDS ORDERED: OXYcodone 5 MG/5 ML ORAL.SOL UDC PO PRN (12:30)
[2017-03-27] MEDS ORDERED: ONDANSETRON 2MG/ML, 2ML IVPush PRN (12:30)
[2017-03-27] MEDS ORDERED: MIDAZOLAM 1 MG/ML, 2ML IV PRN (12:30)
[2017-03-27] MEDS ORDERED: ALBUTEROL SULFATE 2.5 MG/3 ML NPPB PRN (12:30)
[2017-03-27] MEDS ORDERED: hydrALAzine 20 MG/ML, 1ML IV PRN (12:30)
[2017-03-27] MEDS ORDERED: HYDROmorphone 2 MG/ML, 1ML ONE (12:53)
[2017-03-27] MEDS: FENTANYL PF 100 MCG/2ML IV PRN ×2 (12:56→13:06)
[2017-03-27] MEDS: HYDROmorphone 1 MG/ML, 1ML IV PRN ×2 (12:58→13:06)
[2017-03-27 14:38] VITALS: BP 119/74
[2017-03-27] MEDS: NICOTINE 14MG/24 HR PATCH.TD24 TD SCH (16:56)
[2017-03-27] MEDS ORDERED: WARFARIN 7.5 MG TABLET PO-COUM ONE (18:00)
[2017-03-27 18:43] VITALS: BP 121/73
[2017-03-28 02:51] VITALS: BP 139/70
[2017-03-28] MEDS: LORazepam 1MG TABLET PO PRN ×4 (03:07→21:31)
[2017-03-28] MEDS: PIPERACILLIN/TAZO 4.5 GM in SODIUM CHLORIDE 0.9% 100 ML IV SCH ×4 (04:21→22:19)
[2017-03-28 05:31] LABS: INTERNATIONAL NORMALIZED RATIO 1.73 (0.93-1.1); PROTHROMBIN TIME 17.8 Seconds (9.6-11.5)
[2017-03-28 06:56] VITALS: BP 136/70
[2017-03-28] MEDS: NEUTRA PHOS K 250 MG TABLET PO SCH ×4 (10:00→21:35)
[2017-03-28] MEDS: ENOXAPARIN 100 MG/ML SQ SCH ×2 (10:00→21:31)
[2017-03-28] MEDS: FAMOTIDINE 20 MG TABLET PO SCH ×2 (10:00→21:31)
[2017-03-28] MEDS: MAGNESIUM OXIDE 400 MG TABLET PO SCH (10:00)
[2017-03-28] MEDS: GABAPENTIN 300 MG CAPSULE PO SCH ×3 (10:00→21:30)
[2017-03-28] MEDS: WARFARIN MODERAT DOSE PROTOCOL XX SCH (12:00)
[2017-03-28 15:40] VITALS: BP 127/76
[2017-03-28] MEDS: NICOTINE 14MG/24 HR PATCH.TD24 TD SCH (16:32)
[2017-03-28] MEDS ORDERED: WARFARIN 7.5 MG TABLET PO-COUM ONE (18:00)
[2017-03-28 20:55] VITALS: BP 132/79
[2017-03-29 02:57] VITALS: BP 143/88
[2017-03-29] MEDS: PIPERACILLIN/TAZO 4.5 GM in SODIUM CHLORIDE 0.9% 100 ML IV SCH ×4 (04:55→22:16)
[2017-03-29 05:52] LABS: INTERNATIONAL NORMALIZED RATIO 2.09 (0.93-1.1); PROTHROMBIN TIME 21.4 Seconds (9.6-11.5)
[2017-03-29 06:05] LABS: CHLORIDE 107 mmol/L (98-107)
[2017-03-29 06:10] LABS: ALBUMIN 2.4 g/dL (3.4-5.0); ANION GAP 9 mmol/L (5-15); CALCIUM 8.8 mg/dL (8.5-10.1)
[2017-03-29 08:24] LABS: BASOPHILS # (AUTO) 0.23 x10^3/uL (0-0.1); BASOPHILS % (AUTO) 4 % (0-1); EOSINOPHILS % (AUTO) 11 % (1-7); LYMPHOCYTES # (AUTO) 3.15 x10^3/uL (1-3.4); LYMPHOCYTES % (AUTO) 48 % (22-44); MD NO; MEAN CORPUSCULAR HEMOGLOBIN 30.8 pg (27.5-34.5); MEAN CORPUSCULAR HGB CONC 32.6 g/dL (33.2-36.2); MEAN CORPUSCULAR VOLUME 94.5 fL (81-97); MEAN PLATELET VOLUME 8.5 fL (7.4-10.4); MONOCYTES # (AUTO) 0.74 x10^3/uL (0.2-0.8); MONOCYTES % (AUTO) 11 % (2-9); NEUTROPHILS # (AUTO) 1.71 x10^3/uL (1.8-6.8); NEUTROPHILS % (AUTO) 26 % (42-75); PLATELET COUNT 528 x10^3/uL (130-400); RED BLOOD COUNT 3.46 x10^6/uL (4.38-5.82); RED CELL DISTRIBUTION WIDTH 17.1 % (9.4-14.8)
[2017-03-29 08:56] VITALS: BP 148/83
[2017-03-29] MEDS: GABAPENTIN 300 MG CAPSULE PO SCH ×3 (09:06→22:15)
[2017-03-29] MEDS: MAGNESIUM OXIDE 400 MG TABLET PO SCH (09:06)
[2017-03-29] MEDS: FAMOTIDINE 20 MG TABLET PO SCH ×2 (09:06→22:15)
[2017-03-29] MEDS: NEUTRA PHOS K 250 MG TABLET PO SCH ×3 (09:07→22:16)
[2017-03-29] MEDS: ENOXAPARIN 100 MG/ML SQ SCH ×2 (09:07→22:16)
[2017-03-29] MEDS: LORazepam 1MG TABLET PO PRN ×4 (09:07→22:24)
[2017-03-29] MEDS: WARFARIN MODERAT DOSE PROTOCOL XX SCH (12:00)
[2017-03-29] MEDS ORDERED: morphine SULFATE 10 MG/ML, 1ML ONE (13:27)
[2017-03-29] MEDS ORDERED: MORPHINE SULFATE 4 MG/ML, 1ML IVPush ONE (13:30)
[2017-03-29 14:31] VITALS: BP 124/73
[2017-03-29] MEDS: NICOTINE 14MG/24 HR PATCH.TD24 TD SCH (16:34)
[2017-03-29] MEDS ORDERED: WARFARIN 10 MG TABLET PO-COUM ONE (18:00)
[2017-03-29 19:15] VITALS: BP 112/69
[2017-03-30 02:30] VITALS: BP 117/75
[2017-03-30] MEDS: PIPERACILLIN/TAZO 4.5 GM in SODIUM CHLORIDE 0.9% 100 ML IV SCH ×4 (04:20→21:40)
[2017-03-30 06:06] LABS: INTERNATIONAL NORMALIZED RATIO 2.09 (0.93-1.1); PROTHROMBIN TIME 21.4 Seconds (9.6-11.5)
[2017-03-30 07:35] VITALS: BP 145/85
[2017-03-30] MEDS: FAMOTIDINE 20 MG TABLET PO SCH ×2 (08:11→22:10)
[2017-03-30] MEDS: ENOXAPARIN 100 MG/ML SQ SCH ×2 (08:11→21:39)
[2017-03-30] MEDS: LORazepam 1MG TABLET PO PRN ×4 (08:11→22:11)
[2017-03-30] MEDS: GABAPENTIN 300 MG CAPSULE PO SCH ×3 (08:11→21:39)
[2017-03-30] MEDS: MAGNESIUM OXIDE 400 MG TABLET PO SCH (08:12)
[2017-03-30] MEDS: NEUTRA PHOS K 250 MG TABLET PO SCH ×3 (08:12→21:39)
[2017-03-30] MEDS: WARFARIN MODERAT DOSE PROTOCOL XX SCH (12:00)
[2017-03-30] MEDS: NICOTINE 14MG/24 HR PATCH.TD24 TD SCH (16:52)
[2017-03-30] MEDS ORDERED: WARFARIN 10 MG TABLET PO-COUM ONE (18:00)
[2017-03-30 20:04] VITALS: BP 135/76
[2017-03-30] MEDS: DIPHENHYDRAMINE 50 MG CAPSULE PO PRN (22:49)
[2017-03-31 01:43] VITALS: BP 117/76
[2017-03-31] MEDS: PIPERACILLIN/TAZO 4.5 GM in SODIUM CHLORIDE 0.9% 100 ML IV SCH ×4 (03:56→22:48)
[2017-03-31 05:38] LABS: INTERNATIONAL NORMALIZED RATIO 1.77 (0.93-1.1); PROTHROMBIN TIME 18.2 Seconds (9.6-11.5)
[2017-03-31 08:04] VITALS: BP 146/84
[2017-03-31] MEDS: GABAPENTIN 300 MG CAPSULE PO SCH ×3 (08:05→20:18)
[2017-03-31] MEDS: FAMOTIDINE 20 MG TABLET PO SCH ×2 (08:06→20:18)
[2017-03-31] MEDS: ENOXAPARIN 100 MG/ML SQ SCH ×2 (08:07→20:19)
[2017-03-31] MEDS: NEUTRA PHOS K 250 MG TABLET PO SCH ×3 (08:10→20:19)
[2017-03-31] MEDS: LORazepam 1MG TABLET PO PRN ×4 (08:14→20:18)
[2017-03-31] MEDS: MAGNESIUM OXIDE 400 MG TABLET PO SCH (08:15)
[2017-03-31] MEDS: WARFARIN MODERAT DOSE PROTOCOL XX SCH (12:05)
[2017-03-31 14:52] VITALS: BP 123/74
[2017-03-31] MEDS ORDERED: WARFARIN 7.5 MG TABLET PO-COUM ONE (18:00)
[2017-03-31] MEDS: NICOTINE 14MG/24 HR PATCH.TD24 TD SCH (18:07)
[2017-03-31 19:53] VITALS: BP 113/71
[2017-04-01] MEDS: LORazepam 1MG TABLET PO PRN ×5 (02:17→20:37)
[2017-04-01 02:20] VITALS: BP 106/71
[2017-04-01] MEDS: PIPERACILLIN/TAZO 4.5 GM in SODIUM CHLORIDE 0.9% 100 ML IV SCH ×4 (04:40→22:33)
[2017-04-01 05:21] LABS: BASOPHILS # (AUTO) 0.12 x10^3/uL (0-0.1); BASOPHILS % (AUTO) 2 % (0-1); EOSINOPHILS # (AUTO) 0.85 x10^3/uL (0-0.4); EOSINOPHILS % (AUTO) 13 % (1-7); LYMPHOCYTES # (AUTO) 2.07 x10^3/uL (1-3.4); LYMPHOCYTES % (AUTO) 32 % (22-44); MD NO; MEAN CORPUSCULAR HEMOGLOBIN 30.9 pg (27.5-34.5); MEAN CORPUSCULAR HGB CONC 32.8 g/dL (33.2-36.2); MEAN CORPUSCULAR VOLUME 94.3 fL (81-97); MEAN PLATELET VOLUME 7.9 fL (7.4-10.4); MONOCYTES # (AUTO) 1.13 x10^3/uL (0.2-0.8); MONOCYTES % (AUTO) 17 % (2-9); NEUTROPHILS # (AUTO) 2.39 x10^3/uL (1.8-6.8); NEUTROPHILS % (AUTO) 37 % (42-75); PLATELET COUNT 480 x10^3/uL (130-400); RED BLOOD COUNT 3.54 x10^6/uL (4.38-5.82)
[2017-04-01 05:25] LABS: INTERNATIONAL NORMALIZED RATIO 1.78 (0.93-1.1); PROTHROMBIN TIME 18.3 Seconds (9.6-11.5)
[2017-04-01 05:31] LABS: CHLORIDE 105 mmol/L (98-107)
[2017-04-01 05:53] LABS: ALANINE AMINOTRANSFERASE 22 U/L (12-78); ALBUMIN 2.5 g/dL (3.4-5.0); ALKALINE PHOSPHATASE 110 U/L (45-117); ANION GAP 5 mmol/L (5-15); BILIRUBIN,TOTAL 0.2 mg/dL (0.2-1.0); CREATININE 0.48 mg/dL (0.7-1.3); TOTAL PROTEIN 7.9 g/dL (6.4-8.2)
[2017-04-01 06:13] LABS: HCT (SEDRATE) 33.4 % (39.2-51.8)
[2017-04-01 07:34] VITALS: BP 121/77
[2017-04-01] MEDS: FAMOTIDINE 20 MG TABLET PO SCH ×2 (09:19→20:48)
[2017-04-01] MEDS: DIPHENHYDRAMINE 50 MG CAPSULE PO PRN (09:19)
[2017-04-01] MEDS: GABAPENTIN 300 MG CAPSULE PO SCH ×3 (09:19→20:49)
[2017-04-01] MEDS: NEUTRA PHOS K 250 MG TABLET PO SCH ×3 (09:19→20:49)
[2017-04-01] MEDS: ENOXAPARIN 100 MG/ML SQ SCH (09:20)
[2017-04-01] MEDS: MAGNESIUM OXIDE 400 MG TABLET PO SCH (09:24)
[2017-04-01] MEDS: WARFARIN MODERAT DOSE PROTOCOL XX SCH (12:18)
[2017-04-01 14:40] VITALS: BP 130/70
[2017-04-01] MEDS ORDERED: WARFARIN 7.5 MG TABLET PO-COUM ONE (18:00)
[2017-04-01] MEDS: NICOTINE 14MG/24 HR PATCH.TD24 TD SCH (18:06)
[2017-04-01 20:29] VITALS: BP 120/75
[2017-04-01] MEDS: APIXABAN 5 MG TABLET PO SCH (20:48)
[2017-04-02 02:08] VITALS: BP 122/72
[2017-04-02] MEDS: LORazepam 1MG TABLET PO PRN ×5 (02:23→20:21)
[2017-04-02] MEDS: PIPERACILLIN/TAZO 4.5 GM in SODIUM CHLORIDE 0.9% 100 ML IV SCH ×4 (04:43→21:46)
[2017-04-02 05:54] LABS: INTERNATIONAL NORMALIZED RATIO 1.76 (0.93-1.1); PROTHROMBIN TIME 18.1 Seconds (9.6-11.5)
[2017-04-02] MEDS: FAMOTIDINE 20 MG TABLET PO SCH ×2 (08:32→20:20)
[2017-04-02] MEDS: GABAPENTIN 300 MG CAPSULE PO SCH ×3 (08:32→20:21)
[2017-04-02] MEDS: APIXABAN 5 MG TABLET PO SCH ×2 (08:33→20:20)
[2017-04-02] MEDS: NEUTRA PHOS K 250 MG TABLET PO SCH ×3 (08:33→20:20)
[2017-04-02] MEDS: MAGNESIUM OXIDE 400 MG TABLET PO SCH (08:33)
[2017-04-02 08:36] VITALS: BP 118/62
[2017-04-02 17:12] VITALS: BP 128/73
[2017-04-02] MEDS: NICOTINE 14MG/24 HR PATCH.TD24 TD SCH (18:18)
[2017-04-02 19:34] VITALS: BP 105/59
[2017-04-03] MEDS: LORazepam 1MG TABLET PO PRN ×6 (00:18→20:58)
[2017-04-03 01:58] VITALS: BP 117/74
[2017-04-03] MEDS: PIPERACILLIN/TAZO 4.5 GM in SODIUM CHLORIDE 0.9% 100 ML IV SCH ×4 (04:23→20:58)
[2017-04-03 06:13] LABS: INTERNATIONAL NORMALIZED RATIO 1.32 (0.93-1.1); PROTHROMBIN TIME 13.7 Seconds (9.6-11.5)
[2017-04-03 07:46] VITALS: BP 117/69
[2017-04-03] MEDS: APIXABAN 5 MG TABLET PO SCH ×2 (08:30→20:52)
[2017-04-03] MEDS: GABAPENTIN 300 MG CAPSULE PO SCH ×3 (08:30→20:51)
[2017-04-03] MEDS: FAMOTIDINE 20 MG TABLET PO SCH ×2 (08:30→20:51)
[2017-04-03] MEDS: NEUTRA PHOS K 250 MG TABLET PO SCH ×3 (08:30→20:51)
[2017-04-03] MEDS: MAGNESIUM OXIDE 400 MG TABLET PO SCH (08:31)
[2017-04-03 13:54] VITALS: BP 111/70
[2017-04-03] MEDS: NICOTINE 14MG/24 HR PATCH.TD24 TD SCH (18:00)
[2017-04-03 20:13] VITALS: BP 116/62
[2017-04-04] MEDS: LORazepam 1MG TABLET PO PRN ×5 (01:24→20:05)
[2017-04-04 02:07] VITALS: BP 116/65
[2017-04-04] MEDS: PIPERACILLIN/TAZO 4.5 GM in SODIUM CHLORIDE 0.9% 100 ML IV SCH ×4 (04:07→22:47)
[2017-04-04 07:05] VITALS: BP 112/69
[2017-04-04 07:56] LABS: INTERNATIONAL NORMALIZED RATIO 1.14 (0.93-1.1); PROTHROMBIN TIME 11.8 Seconds (9.6-11.5)
[2017-04-04] MEDS: FAMOTIDINE 20 MG TABLET PO SCH ×2 (08:57→20:05)
[2017-04-04] MEDS: NEUTRA PHOS K 250 MG TABLET PO SCH ×3 (08:58→20:06)
[2017-04-04] MEDS: GABAPENTIN 300 MG CAPSULE PO SCH ×3 (08:58→20:05)
[2017-04-04] MEDS: MAGNESIUM OXIDE 400 MG TABLET PO SCH (09:00)
[2017-04-04] MEDS: APIXABAN 5 MG TABLET PO SCH ×2 (09:00→20:05)
[2017-04-04 13:41] VITALS: BP 120/72
[2017-04-04] MEDS: NICOTINE 14MG/24 HR PATCH.TD24 TD SCH (17:04)
[2017-04-04 18:44] VITALS: BP 111/72
[2017-04-04] MEDS: DIPHENHYDRAMINE 50 MG CAPSULE PO PRN (19:45)
[2017-04-05] MEDS: LORazepam 1MG TABLET PO PRN ×6 (00:14→21:13)
[2017-04-05 01:30] VITALS: BP 95/60
[2017-04-05] MEDS: PIPERACILLIN/TAZO 4.5 GM in SODIUM CHLORIDE 0.9% 100 ML IV SCH ×4 (04:32→21:14)
[2017-04-05 07:22] LABS: INTERNATIONAL NORMALIZED RATIO 1.09 (0.93-1.1); PROTHROMBIN TIME 11.3 Seconds (9.6-11.5)
[2017-04-05 07:35] VITALS: BP 110/74
[2017-04-05] MEDS: FAMOTIDINE 20 MG TABLET PO SCH ×2 (08:31→21:12)
[2017-04-05] MEDS: GABAPENTIN 300 MG CAPSULE PO SCH ×3 (08:32→21:12)
[2017-04-05] MEDS: APIXABAN 5 MG TABLET PO SCH ×2 (08:32→21:12)
[2017-04-05] MEDS: NEUTRA PHOS K 250 MG TABLET PO SCH ×3 (08:32→21:13)
[2017-04-05] MEDS: MAGNESIUM OXIDE 400 MG TABLET PO SCH (08:44)
[2017-04-05 15:59] VITALS: BP 119/69
[2017-04-05] MEDS: NICOTINE 14MG/24 HR PATCH.TD24 TD SCH (16:12)
[2017-04-05 18:45] VITALS: BP 121/67
[2017-04-06] MEDS: LORazepam 1MG TABLET PO PRN ×4 (02:48→23:25)
[2017-04-06 02:59] VITALS: BP 119/74
[2017-04-06] MEDS: PIPERACILLIN/TAZO 4.5 GM in SODIUM CHLORIDE 0.9% 100 ML IV SCH ×4 (04:10→21:49)
[2017-04-06 05:52] LABS: INTERNATIONAL NORMALIZED RATIO 1.08 (0.93-1.1); PROTHROMBIN TIME 11.2 Seconds (9.6-11.5)
[2017-04-06 08:11] VITALS: BP 129/76
[2017-04-06] MEDS: FAMOTIDINE 20 MG TABLET PO SCH ×2 (08:26→21:49)
[2017-04-06] MEDS: GABAPENTIN 300 MG CAPSULE PO SCH ×3 (08:26→21:47)
[2017-04-06] MEDS: APIXABAN 5 MG TABLET PO SCH ×2 (08:26→21:48)
[2017-04-06] MEDS: MAGNESIUM OXIDE 400 MG TABLET PO SCH (08:27)
[2017-04-06] MEDS: NEUTRA PHOS K 250 MG TABLET PO SCH ×3 (08:27→21:49)
[2017-04-06 13:50] VITALS: BP 119/71
[2017-04-06] MEDS: NICOTINE 14MG/24 HR PATCH.TD24 TD SCH (18:00)
[2017-04-06 19:49] VITALS: BP 121/74
[2017-04-07 03:27] VITALS: BP 139/60
[2017-04-07] MEDS: PIPERACILLIN/TAZO 4.5 GM in SODIUM CHLORIDE 0.9% 100 ML IV SCH ×4 (03:56→23:20)
[2017-04-07 06:30] LABS: INTERNATIONAL NORMALIZED RATIO 1.08 (0.93-1.1); PROTHROMBIN TIME 11.2 Seconds (9.6-11.5)
[2017-04-07] MEDS: NEUTRA PHOS K 250 MG TABLET PO SCH ×3 (09:00→20:30)
[2017-04-07] MEDS: MAGNESIUM OXIDE 400 MG TABLET PO SCH (09:00)
[2017-04-07] MEDS: FAMOTIDINE 20 MG TABLET PO SCH ×2 (09:47→20:29)
[2017-04-07] MEDS: APIXABAN 5 MG TABLET PO SCH ×2 (09:48→20:30)
[2017-04-07] MEDS: LORazepam 1MG TABLET PO PRN ×3 (09:48→20:30)
[2017-04-07] MEDS: GABAPENTIN 300 MG CAPSULE PO SCH ×3 (09:50→20:30)
[2017-04-07 12:50] VITALS: BP 114/74
[2017-04-07] MEDS: NICOTINE 14MG/24 HR PATCH.TD24 TD SCH (18:00)
[2017-04-07 21:39] VITALS: BP 120/73
[2017-04-08 03:13] VITALS: BP 115/76
[2017-04-08] MEDS: LORazepam 1MG TABLET PO PRN ×4 (04:48→20:05)
[2017-04-08] MEDS: PIPERACILLIN/TAZO 4.5 GM in SODIUM CHLORIDE 0.9% 100 ML IV SCH ×4 (04:48→21:52)
[2017-04-08 07:33] LABS: BASOPHILS # (AUTO) 0.07 x10^3/uL (0-0.1); BASOPHILS % (AUTO) 1 % (0-1); EOSINOPHILS # (AUTO) 0.69 x10^3/uL (0-0.4); EOSINOPHILS % (AUTO) 11 % (1-7); LYMPHOCYTES # (AUTO) 2.28 x10^3/uL (1-3.4); LYMPHOCYTES % (AUTO) 37 % (22-44); MD NO; MEAN CORPUSCULAR HEMOGLOBIN 30.4 pg (27.5-34.5); MEAN CORPUSCULAR HGB CONC 32.8 g/dL (33.2-36.2); MEAN CORPUSCULAR VOLUME 92.7 fL (81-97); MEAN PLATELET VOLUME 7.3 fL (7.4-10.4); MONOCYTES # (AUTO) 1.03 x10^3/uL (0.2-0.8); MONOCYTES % (AUTO) 17 % (2-9); NEUTROPHILS % (AUTO) 34 % (42-75); PLATELET COUNT 404 x10^3/uL (130-400); RED BLOOD COUNT 3.85 x10^6/uL (4.38-5.82); RED CELL DISTRIBUTION WIDTH 16.5 % (9.4-14.8)
[2017-04-08 07:35] LABS: HCT (SEDRATE) 35.7 % (39.2-51.8)
[2017-04-08 07:43] LABS: INTERNATIONAL NORMALIZED RATIO 1.08 (0.93-1.1); PROTHROMBIN TIME 11.2 Seconds (9.6-11.5)
[2017-04-08 07:48] LABS: ALANINE AMINOTRANSFERASE 26 U/L (12-78); ALBUMIN 2.7 g/dL (3.4-5.0); ANION GAP 6 mmol/L (5-15); CALCIUM 8.9 mg/dL (8.5-10.1); CHLORIDE 105 mmol/L (98-107)
[2017-04-08 07:56] LABS: ALKALINE PHOSPHATASE 90 U/L (45-117); BILIRUBIN,TOTAL 0.4 mg/dL (0.2-1.0); CREATININE 0.57 mg/dL (0.7-1.3); TOTAL PROTEIN 8.2 g/dL (6.4-8.2)
[2017-04-08 08:12] VITALS: BP 110/64
[2017-04-08] MEDS: NEUTRA PHOS K 250 MG TABLET PO SCH ×4 (09:00→20:06)
[2017-04-08] MEDS: APIXABAN 5 MG TABLET PO SCH ×3 (09:00→20:04)
[2017-04-08] MEDS: MAGNESIUM OXIDE 400 MG TABLET PO SCH (09:00)
[2017-04-08] MEDS: FAMOTIDINE 20 MG TABLET PO SCH ×2 (09:15→20:04)
[2017-04-08] MEDS: GABAPENTIN 300 MG CAPSULE PO SCH ×3 (09:17→20:04)
[2017-04-08 13:53] VITALS: BP 116/82
[2017-04-08] MEDS: NICOTINE 14MG/24 HR PATCH.TD24 TD SCH (16:01)
[2017-04-08 19:19] VITALS: BP 117/67
[2017-04-09] MEDS: PIPERACILLIN/TAZO 4.5 GM in SODIUM CHLORIDE 0.9% 100 ML IV SCH ×4 (04:06→21:27)
[2017-04-09] MEDS: LORazepam 1MG TABLET PO PRN ×3 (04:40→18:51)
[2017-04-09 04:42] VITALS: BP 111/76
[2017-04-09 05:57] LABS: INTERNATIONAL NORMALIZED RATIO 1.03 (0.93-1.1); PROTHROMBIN TIME 10.7 Seconds (9.6-11.5)
[2017-04-09 07:46] VITALS: BP 109/71
[2017-04-09] MEDS: GABAPENTIN 300 MG CAPSULE PO SCH ×3 (08:38→21:26)
[2017-04-09] MEDS: NEUTRA PHOS K 250 MG TABLET PO SCH ×3 (08:38→21:00)
[2017-04-09] MEDS: FAMOTIDINE 20 MG TABLET PO SCH ×2 (08:38→21:27)
[2017-04-09] MEDS: APIXABAN 5 MG TABLET PO SCH ×2 (08:38→21:26)
[2017-04-09] MEDS: MAGNESIUM OXIDE 400 MG TABLET PO SCH (08:38)
[2017-04-09 12:43] VITALS: BP 121/69
[2017-04-09] MEDS: NICOTINE 14MG/24 HR PATCH.TD24 TD SCH (15:38)
[2017-04-09 20:12] VITALS: BP 125/76
[2017-04-10 02:54] VITALS: BP 111/70
[2017-04-10] MEDS: PIPERACILLIN/TAZO 4.5 GM in SODIUM CHLORIDE 0.9% 100 ML IV SCH ×4 (03:59→21:52)
[2017-04-10] MEDS: APIXABAN 5 MG TABLET PO SCH ×2 (08:54→21:01)
[2017-04-10] MEDS: NEUTRA PHOS K 250 MG TABLET PO SCH ×3 (08:54→20:56)
[2017-04-10] MEDS: MAGNESIUM OXIDE 400 MG TABLET PO SCH (08:54)
[2017-04-10] MEDS: GABAPENTIN 300 MG CAPSULE PO SCH ×3 (08:54→21:01)
[2017-04-10] MEDS: FAMOTIDINE 20 MG TABLET PO SCH ×2 (08:54→21:01)
[2017-04-10] MEDS: LORazepam 1MG TABLET PO PRN ×2 (08:55→21:04)
[2017-04-10 09:02] VITALS: BP 117/67
[2017-04-10 14:21] VITALS: BP 118/80
[2017-04-10] MEDS: NICOTINE 14MG/24 HR PATCH.TD24 TD SCH (16:29)
[2017-04-10 20:12] VITALS: BP 115/70
[2017-04-11] MEDS: PIPERACILLIN/TAZO 4.5 GM in SODIUM CHLORIDE 0.9% 100 ML IV SCH ×3 (04:18→16:14)
[2017-04-11 05:02] VITALS: BP 116/76
[2017-04-11 05:59] LABS: INTERNATIONAL NORMALIZED RATIO 1.09 (0.93-1.1); PROTHROMBIN TIME 11.3 Seconds (9.6-11.5)
[2017-04-11 08:05] VITALS: BP 114/73
[2017-04-11] MEDS: NEUTRA PHOS K 250 MG TABLET PO SCH ×3 (08:08→20:24)
[2017-04-11] MEDS: MAGNESIUM OXIDE 400 MG TABLET PO SCH (08:08)
[2017-04-11] MEDS: APIXABAN 5 MG TABLET PO SCH ×2 (08:09→20:24)
[2017-04-11] MEDS: GABAPENTIN 300 MG CAPSULE PO SCH ×3 (08:09→20:24)
[2017-04-11] MEDS: FAMOTIDINE 20 MG TABLET PO SCH ×2 (08:09→20:24)
[2017-04-11 10:24] VITALS: BP_SYST 0; BP_SYST 134; BP_DIAS 0; BP_DIAS 77
[2017-04-11 12:15] VITALS: BP 146/82
[2017-04-11] MEDS: NICOTINE 14MG/24 HR PATCH.TD24 TD SCH (16:15)
[2017-04-11 20:00] VITALS: BP 113/66
[2017-04-11] MEDS: PIPERACILLIN/TAZO/PMX 4.5GM 100 ML IV SCH (21:30)
[2017-04-12 02:00] VITALS: BP 115/75
[2017-04-12] MEDS: PIPERACILLIN/TAZO/PMX 4.5GM 100 ML IV SCH ×4 (04:00→21:34)
[2017-04-12] MEDS: NEUTRA PHOS K 250 MG TABLET PO SCH ×3 (08:30→21:00)
[2017-04-12] MEDS: MAGNESIUM OXIDE 400 MG TABLET PO SCH (08:31)
[2017-04-12] MEDS: GABAPENTIN 300 MG CAPSULE PO SCH ×3 (08:32→21:29)
[2017-04-12] MEDS: FAMOTIDINE 20 MG TABLET PO SCH ×2 (08:32→21:29)
[2017-04-12] MEDS: APIXABAN 5 MG TABLET PO SCH ×2 (08:32→21:29)
[2017-04-12 08:40] VITALS: BP 130/83
[2017-04-12 11:46] LABS: INTERNATIONAL NORMALIZED RATIO 1.06 (0.93-1.1)
[2017-04-12 14:44] VITALS: BP 118/77
[2017-04-12] MEDS: NICOTINE 14MG/24 HR PATCH.TD24 TD SCH (17:35)
[2017-04-12 18:27] VITALS: BP 146/77
[2017-04-13 00:34] VITALS: BP 133/77
[2017-04-13] MEDS: PIPERACILLIN/TAZO/PMX 4.5GM 100 ML IV SCH ×4 (04:07→22:18)
[2017-04-13 08:01] VITALS: BP 153/84
[2017-04-13] MEDS: APIXABAN 5 MG TABLET PO SCH ×2 (08:08→20:12)
[2017-04-13] MEDS: GABAPENTIN 300 MG CAPSULE PO SCH ×3 (08:08→20:12)
[2017-04-13] MEDS: FAMOTIDINE 20 MG TABLET PO SCH ×2 (08:09→20:13)
[2017-04-13] MEDS: MAGNESIUM OXIDE 400 MG TABLET PO SCH (08:09)
[2017-04-13] MEDS: NEUTRA PHOS K 250 MG TABLET PO SCH ×3 (08:09→20:13)
[2017-04-13 09:09] LABS: INTERNATIONAL NORMALIZED RATIO 1.05 (0.93-1.1); PROTHROMBIN TIME 10.9 Seconds (9.6-11.5)
[2017-04-13 13:53] VITALS: BP 125/75
[2017-04-13] MEDS: NICOTINE 14MG/24 HR PATCH.TD24 TD SCH (18:00)
[2017-04-13 19:24] VITALS: BP 130/70
[2017-04-14 01:28] VITALS: BP 111/63
[2017-04-14] MEDS: PIPERACILLIN/TAZO/PMX 4.5GM 100 ML IV SCH ×4 (03:52→21:32)
[2017-04-14 06:51] VITALS: BP 117/67
[2017-04-14] MEDS: FAMOTIDINE 20 MG TABLET PO SCH ×2 (08:38→21:33)
[2017-04-14] MEDS: GABAPENTIN 300 MG CAPSULE PO SCH ×3 (08:38→21:33)
[2017-04-14] MEDS: NEUTRA PHOS K 250 MG TABLET PO SCH ×3 (08:38→21:00)
[2017-04-14] MEDS: APIXABAN 5 MG TABLET PO SCH ×2 (08:38→21:33)
[2017-04-14] MEDS: MAGNESIUM OXIDE 400 MG TABLET PO SCH (08:38)
[2017-04-14 13:36] VITALS: BP 131/79
[2017-04-14] MEDS: NICOTINE 14MG/24 HR PATCH.TD24 TD SCH (16:50)
[2017-04-14 19:55] VITALS: BP 110/68
[2017-04-15 00:52] VITALS: BP 115/62
[2017-04-15] MEDS: PIPERACILLIN/TAZO/PMX 4.5GM 100 ML IV SCH ×3 (04:24→18:11)
[2017-04-15 05:33] LABS: BASOPHILS % (AUTO) 2 % (0-1); EOSINOPHILS # (AUTO) 0.86 x10^3/uL (0-0.4); EOSINOPHILS % (AUTO) 14 % (1-7); LYMPHOCYTES # (AUTO) 2.01 x10^3/uL (1-3.4); LYMPHOCYTES % (AUTO) 34 % (22-44); MD NO; MEAN CORPUSCULAR HEMOGLOBIN 30.4 pg (27.5-34.5); MEAN CORPUSCULAR HGB CONC 32.9 g/dL (33.2-36.2); MEAN CORPUSCULAR VOLUME 92.6 fL (81-97); MEAN PLATELET VOLUME 7.9 fL (7.4-10.4); MONOCYTES # (AUTO) 0.86 x10^3/uL (0.2-0.8); MONOCYTES % (AUTO) 14 % (2-9); NEUTROPHILS # (AUTO) 2.17 x10^3/uL (1.8-6.8); NEUTROPHILS % (AUTO) 36 % (42-75); PLATELET COUNT 397 x10^3/uL (130-400); RED BLOOD COUNT 3.94 x10^6/uL (4.38-5.82); RED CELL DISTRIBUTION WIDTH 16.2 % (9.4-14.8)
[2017-04-15 05:43] LABS: ALBUMIN 2.8 g/dL (3.4-5.0); ANION GAP 7 mmol/L (5-15); CALCIUM 8.9 mg/dL (8.5-10.1); CHLORIDE 104 mmol/L (98-107)
[2017-04-15 05:49] LABS: ALANINE AMINOTRANSFERASE 41 U/L (12-78); ALKALINE PHOSPHATASE 89 U/L (45-117); BILIRUBIN,TOTAL 0.6 mg/dL (0.2-1.0); C-REACTIVE PROTEIN, QUANT 0.59 mg/dL (0.02-0.49); TOTAL PROTEIN 8.2 g/dL (6.4-8.2)
[2017-04-15 06:14] LABS: HCT (SEDRATE) 36.5 % (39.2-51.8)
[2017-04-15 07:01] VITALS: BP 133/79
[2017-04-15] MEDS: APIXABAN 5 MG TABLET PO SCH ×2 (08:11→21:48)
[2017-04-15] MEDS: FAMOTIDINE 20 MG TABLET PO SCH ×2 (08:11→21:48)
[2017-04-15] MEDS: GABAPENTIN 300 MG CAPSULE PO SCH ×3 (08:11→21:48)
[2017-04-15] MEDS: MAGNESIUM OXIDE 400 MG TABLET PO SCH (08:12)
[2017-04-15] MEDS: NEUTRA PHOS K 250 MG TABLET PO SCH ×3 (08:12→21:00)
[2017-04-15 13:20] VITALS: BP 117/74
[2017-04-15] MEDS: NICOTINE 14MG/24 HR PATCH.TD24 TD SCH (18:08)
[2017-04-15 20:06] VITALS: BP 122/66
[2017-04-16 00:46] VITALS: BP 113/66
[2017-04-16] MEDS: PIPERACILLIN/TAZO/PMX 4.5GM 100 ML IV SCH ×4 (06:25→20:10)
[2017-04-16 07:32] VITALS: BP 143/97
[2017-04-16] MEDS: FAMOTIDINE 20 MG TABLET PO SCH ×2 (09:03→21:11)
[2017-04-16] MEDS: MAGNESIUM OXIDE 400 MG TABLET PO SCH (09:03)
[2017-04-16] MEDS: GABAPENTIN 300 MG CAPSULE PO SCH ×3 (09:03→21:11)
[2017-04-16] MEDS: NEUTRA PHOS K 250 MG TABLET PO SCH ×3 (09:03→21:00)
[2017-04-16] MEDS: APIXABAN 5 MG TABLET PO SCH ×2 (09:04→21:11)
[2017-04-16 14:05] VITALS: BP 117/74
[2017-04-16] MEDS: NICOTINE 14MG/24 HR PATCH.TD24 TD SCH (15:29)
[2017-04-16 19:22] VITALS: BP 148/85
[2017-04-17] MEDS: PIPERACILLIN/TAZO/PMX 4.5GM 100 ML IV SCH ×2 (01:45→07:30)
[2017-04-17 02:22] VITALS: BP 114/72
[2017-04-17 06:52] LABS: BASOPHILS # (AUTO) 0.09 x10^3/uL (0-0.1); BASOPHILS % (AUTO) 2 % (0-1); EOSINOPHILS # (AUTO) 0.91 x10^3/uL (0-0.4); EOSINOPHILS % (AUTO) 16 % (1-7); LYMPHOCYTES # (AUTO) 1.93 x10^3/uL (1-3.4); LYMPHOCYTES % (AUTO) 33 % (22-44); MD NO; MEAN CORPUSCULAR HEMOGLOBIN 30.2 pg (27.5-34.5); MEAN CORPUSCULAR HGB CONC 33.2 g/dL (33.2-36.2); MEAN PLATELET VOLUME 7.5 fL (7.4-10.4); MONOCYTES # (AUTO) 0.91 x10^3/uL (0.2-0.8); MONOCYTES % (AUTO) 16 % (2-9); NEUTROPHILS % (AUTO) 34 % (42-75); PLATELET COUNT 392 x10^3/uL (130-400); RED BLOOD COUNT 3.91 x10^6/uL (4.38-5.82); RED CELL DISTRIBUTION WIDTH 16.5 % (9.4-14.8)
[2017-04-17 07:05] LABS: ALANINE AMINOTRANSFERASE 38 U/L (12-78); ALBUMIN 2.7 g/dL (3.4-5.0); ANION GAP 6 mmol/L (5-15); CALCIUM 8.8 mg/dL (8.5-10.1); CHLORIDE 104 mmol/L (98-107); CREATININE 0.49 mg/dL (0.7-1.3)
[2017-04-17 07:07] LABS: ALKALINE PHOSPHATASE 91 U/L (45-117); BILIRUBIN,TOTAL 0.4 mg/dL (0.2-1.0); TOTAL PROTEIN 7.6 g/dL (6.4-8.2)
[2017-04-17 07:17] VITALS: BP 135/80
[2017-04-17] MEDS: MAGNESIUM OXIDE 400 MG TABLET PO SCH (09:00)
[2017-04-17] MEDS: APIXABAN 5 MG TABLET PO SCH (09:22)
[2017-04-17] MEDS: GABAPENTIN 300 MG CAPSULE PO SCH (09:22)
[2017-04-17] MEDS ORDERED: GABA300C10 PO (09:27)
[2017-04-17] MEDS ORDERED: NICO-486 TD (09:27)
[2017-04-17] MEDS ORDERED: APIX5TAB PO (09:27)
[2017-04-17] MEDS ORDERED: PIPE4.5V3 IV (09:40)
[2017-04-17 12:40] VITALS: BP 130/87
== END 2017-04-17 13:30 | DRG 853 ==
LOC: ED 15:06 → EDIP 16:05 → 3NE 18:53 → 4NOR 03-13 12:04 → DCLOUNGE 03-21 14:08 → 4NOR 03-21 14:44
PROVIDERS: ADMIT Hospitalist; ATTEND Internal Medicine
PROC: 0D1L4Z4 Bypass Transverse Colon to Cutaneous, Percutaneous Endoscopic Approach (ICD-10-PCS; principal; 2017-03-13 09:30)
PROC: 0JBC0ZZ Excision of Pelvic Region Subcutaneous Tissue and Fascia, Open Approach (ICD-10-PCS; 2017-03-14)
PROC: 0H9KXZZ Drainage of Right Lower Leg Skin, External Approach (ICD-10-PCS; 2017-03-27)
PROC: 02HV33Z Insertion of Infusion Device into Superior Vena Cava, Percutaneous Approach (ICD-10-PCS; 2017-04-15)
PROC: B548ZZA Ultrasonography of Superior Vena Cava, Guidance (ICD-10-PCS; 2017-04-15)
PROC: B5181ZA Fluoroscopy of Superior Vena Cava using Low Osmolar Contrast, Guidance (ICD-10-PCS; 2017-04-15)
DX: A41.50 Gram-negative sepsis, unspecified (principal); E43 Unspecified severe protein-calorie malnutrition; L89.319 Pressure ulcer of right buttock, unspecified stage; I11.0 Hypertensive heart disease with heart failure; I82.403 Acute embolism and thrombosis of unspecified deep veins of lower extremity, bilateral; E87.1 Hypo-osmolality and hyponatremia; E83.42 Hypomagnesemia; I50.9 Heart failure, unspecified; G62.9 Polyneuropathy, unspecified; L03.115 Cellulitis of right lower limb; K70.10 Alcoholic hepatitis without ascites; I82.411 Acute embolism and thrombosis of right femoral vein; L02.31 Cutaneous abscess of buttock; L03.116 Cellulitis of left lower limb; M86.9 Osteomyelitis, unspecified; N39.0 Urinary tract infection, site not specified; E86.0 Dehydration; L89.619 Pressure ulcer of right heel, unspecified stage; L97.519 Non-pressure chronic ulcer of other part of right foot with unspecified severity; R62.7 Adult failure to thrive; F12.90 Cannabis use, unspecified, uncomplicated; Z68.34 Body mass index [BMI] 34.0-34.9, adult; F10.20 Alcohol dependence, uncomplicated; M51.9 Unspecified thoracic, thoracolumbar and lumbosacral intervertebral disc disorder; H53.8 Other visual disturbances; R74.0 Nonspecific elevation of levels of transaminase and lactic acid dehydrogenase [LDH]; B96.1 Klebsiella pneumoniae [K. pneumoniae] as the cause of diseases classified elsewhere; B96.4 Proteus (mirabilis) (morganii) as the cause of diseases classified elsewhere; D63.8 Anemia in other chronic diseases classified elsewhere; F17.210 Nicotine dependence, cigarettes, uncomplicated; I25.2 Old myocardial infarction; Z79.01 Long term (current) use of anticoagulants; Z86.718 Personal history of other venous thrombosis and embolism; Z91.19 Patient's noncompliance with other medical treatment and regimen
CPT/HCPCS: 36415; 36569; 71010; 76937; 77001; 80048; 80053; 81001; 82040; 83036; 83605; 83735; 83880; 84100; 84145; 85014; 85018; 85025; 85610; 85651; 85730; 86140; 87040; 87070; 87075; 87077; 87086; 87176; 87186; 87205; 93005; 93925; 93970; 96374; C1729; J0690; J0712; J1100; J1170; J1650; J2020; J2250; J2405; J2543; J2704; J2710; J3010; J3370; J3430; J3490; C1751; J0330; J2060; J2270; J3475; J7030; J7040; Q0163

== ENCOUNTER 2018-01-29 20:26 | Emergency (ER) | payer MEDICAID, OTHER ==
[~2018-01-29] VITALS: Ht 188 cm; Wt 118.0 kg
[~2018-01-29 20:26] MED LIST: APIX5TAB PO; GABA300C10 PO; MULT-658 PO; NICO-486 TD; PIPE4.5V3 IV; XARELTO PO
[2018-01-29 22:33] VITALS: BP 183/84
== END 2018-01-29 22:35 | disposition home or self-care (01) ==
LOC: ED 21:51
DX: R20.2 Paresthesia of skin (principal); I50.9 Heart failure, unspecified
CPT/HCPCS: 99284

== ENCOUNTER 2018-09-30 17:04 | Inpatient (IN) | payer MEDICAID, OTHER ==
[~2018-09-30] VITALS: Ht 188 cm; Wt 124.5 kg
[2018-10-03 13:03] VITALS: BP 149/87
== END 2018-10-03 15:30 | disposition home health service (06) | DRG 603 ==
LOC: ED 19:11 → EDIP 20:22 → 3NE 20:26 → DCLOUNGE 10-03 15:10
PROVIDERS: ADMIT Family Medicine; ATTEND Family Medicine
DX: L03.115 Cellulitis of right lower limb (principal); E44.0 Moderate protein-calorie malnutrition; L03.116 Cellulitis of left lower limb; J44.9 Chronic obstructive pulmonary disease, unspecified; Z68.35 Body mass index [BMI] 35.0-35.9, adult; E66.01 Morbid (severe) obesity due to excess calories; E78.5 Hyperlipidemia, unspecified; E87.6 Hypokalemia; F12.90 Cannabis use, unspecified, uncomplicated; F17.210 Nicotine dependence, cigarettes, uncomplicated; G61.9 Inflammatory polyneuropathy, unspecified; I11.0 Hypertensive heart disease with heart failure; I25.10 Atherosclerotic heart disease of native coronary artery without angina pectoris; I50.9 Heart failure, unspecified; Z99.3 Dependence on wheelchair; E80.6 Other disorders of bilirubin metabolism
CPT/HCPCS: 36415; 80048; 80053; 83605; 83880; 85025; 85610; 85730; 87040; 87070; 87077; 87186; 87205; 93970; 96365; 96375; G0378; J0295; J0696; J1170; J2405

== ENCOUNTER 2019-02-05 08:36 | Emergency (ER) | payer OTHER, MEDICAID ==
[~2019-02-05] VITALS: Ht 188 cm; Wt 129.5 kg
[~2019-02-05 08:36] MED LIST changes: +ACET650S21 PO; +APIX2.5T PO; +ATOR-2 PO; +CYAN100028 PO; +DOXY100T PO; +FINA5TAB4 PO; +MAGN420T PO; +PREG150C PO; +PREG200C PO; +Sulfameth./Trimethoprim Ds PO; +TAMS-11 PO; +TIOT4MIS3 INH
[2019-02-05 08:45] VITALS: BP 133/62
[2019-02-05 09:22] LABS: BASOPHILS # (AUTO) 0.06 x10^3/uL (0-0.1); BASOPHILS % (AUTO) 1 % (0-1); EOSINOPHILS # (AUTO) 0.05 x10^3/uL (0-0.4); EOSINOPHILS % (AUTO) 1 % (1-7); LYMPHOCYTES # (AUTO) 1.27 x10^3/uL (1-3.4); LYMPHOCYTES % (AUTO) 14 % (22-44); MD NO; MEAN CORPUSCULAR HEMOGLOBIN 30.5 pg (27.5-34.5); MEAN CORPUSCULAR HGB CONC 32.8 g/dL (33.2-36.2); MONOCYTES # (AUTO) 0.59 x10^3/uL (0.2-0.8); MONOCYTES % (AUTO) 7 % (2-9); NEUTROPHILS % (AUTO) 78 % (42-75); PLATELET COUNT 591 x10^3/uL (130-400); RED BLOOD COUNT 4.01 x10^6/uL (4.38-5.82); RED CELL DISTRIBUTION WIDTH 16.2 % (9.4-14.8)
[2019-02-05 09:32] LABS: ALANINE AMINOTRANSFERASE 32 U/L (12-78); ALBUMIN 2.5 g/dL (3.4-5.0); ANION GAP 4 mmol/L (5-15); CALCIUM 7.6 mg/dL (8.5-10.1); CHLORIDE 107 mmol/L (98-107); CREATININE 0.67 mg/dL (0.7-1.3)
[2019-02-05 09:35] LABS: ALKALINE PHOSPHATASE 108 U/L (45-117); BILIRUBIN,TOTAL 0.9 mg/dL (0.2-1.0); TOTAL PROTEIN 7.4 g/dL (6.4-8.2)
--- NOTE | 2019-02-05 09:50 | NUR ---
ERP TO SEE PT NO NOTED OPEN WOUND ON THE BUTTOCKS SKIN IS REDEND PT REPORTS HE SITS ALL OF THE TIME PT EDUCATED TO MOVE
--- NOTE | 2019-02-05 10:47 | NUR ---
Henok vizcaino in ED - 02/05/19 at 1048 by ISIS ADMIT MD IN TO EVAL PT
--- NOTE | 2019-02-05 10:52 | NUR ---
PT UNHAPPY WITH DC ATTEMPTED TO RESOLVE HIS ISSUES COMPLETE INSTRUCTIONS GIVEN RE HIS FOLLOW UP AND SELF CARE CLOTHING PROVIDED PT HAD NO STOOLS WHILE IN THE ED
== END 2019-02-05 10:58 | disposition home or self-care (01) ==
LOC: ED 10:40
DX: R06.00 Dyspnea, unspecified (principal); R19.7 Diarrhea, unspecified; I11.0 Hypertensive heart disease with heart failure; I50.9 Heart failure, unspecified; I25.2 Old myocardial infarction; Z87.891 Personal history of nicotine dependence; Z86.718 Personal history of other venous thrombosis and embolism
CPT/HCPCS: 36415; 71045; 80053; 83605; 85025; 99284

== ENCOUNTER 2020-05-08 23:53 | Inpatient (IN) | payer MEDICAID, OTHER ==
[~2020-05-08] VITALS: Ht 188 cm; Wt 154.1 kg
[~2020-05-08 23:53] MED LIST changes: +LEVO500T8 PO
--- NOTE | 2020-05-08 23:55 | NUR ---
PATIENT ARRIVED SEVERELY SOILED IN HIS OWN STOOL AND URINE. PATIENT WAS MOVED OVER TO [facility] FROM [facility] AND SOFT STOOL WAS SMEARED OVER LINENS/RAILS AND LARGE AMOUNT DEFECATED ON FLOOR. RN ASKED PATIENT IF THIS WAS BASELINE FOR PATIENT TO BE INCONTINENT AND PATIENT REPLIED "NO". PATIENT REQUESTED THAT HIS CLOTHES BE CUT OFF FROM HIM HE COULD NOT REMOVE THEM HE STATED. ALL CLOTHING REMOVED VIA SHEERS. COCCYX/BUTTOCKS EXPOSED AND FOUND TO BE BLEEDING FROM GLUTEAL INNER CLEFT. MULTIPLE RAISED AREAS ON BUTTOCKS AND EXTENSIVE INCONTINENT DERMATITIS NOTED. BLEEDING CONSTANT FROM THIS AREA. PATIENT HAS INCONTINENT DERMATITIS IN BILATERAL GROINS/SCROTUM/UPPER INNER THIGHS (WITH PEELING SKIN), PERINEAL AND ABOMINAL PANNUS FOLD. HE ALSO IS FOUND TO HAVE MULTIPLE SKIN TEAR/ULCER LIKE AREAS ON BLE WITH +4 PITTING EDEMA AND SEROUS DRAINAGE FROM THESE AREAS. WET SOLES OF FEET WITH SLOUGHED SKIN AND SLOUGHED SKIN ON BLE AND ANKLES. PATIENT RECEIVED EXTENSIVE MAIKEL CARE TO CLEAN UP DEFECATION AND URINE FROM SKIN. MAIKEL-WIPES USED WELL. GOWN PLACED ON PATIENT. HE REPEATS REQUESTS THROUGHOUT PERFORMING MAIKEL-CARE FOR "PAIN MEDICATIONS BECAUSE MY LEGS REALLY HURT". DR. PAREDES TO BEDSIDE TO ASSESS PATIENT AND DID ASSESS BUTTOCKS AND BLE SKIN CONCERNS. PATIENT ORIGINALLY REFUSING MONITORING "I DONT NEED TO BE HOOKED UP TO ALL THOSE WIRES". RN EXPLAINS TO PATIENT IMPORTANCE OF MONITORING HIS VS WHILE IN THE HOSPITAL AND DUE TO HIS CONDITION, I FEEL IT IS NECESSARY. PATIENT COMPLIES AT THIS TIME. CALL [facility]TEGA IN REACH. SAFETY MAINTAINED. WILL CONTINUE TO MONITOR.
--- NOTE | 2020-05-09 00:10 | NUR ---
PATIENT REFUSES IV INSERTION WITHOUT USE OF US MACHINE STATING "WYATT LET EVERY NURSE IN THE WORLD TRY AND I ALWAYS RUN INTO THE SAME THING".
[2020-05-09] MEDS ORDERED: [UNRECOGNIZED DRUG - OTHER] MC SCH (00:30)
[2020-05-09] MEDS ORDERED: CEFTRIAXONE PMX 1GM/50ML 50 ML IV ONE (00:30)
[2020-05-09] MEDS ORDERED: MORPHINE SULFATE 4 MG/ML, 1ML IVPush PRN (00:30)
[2020-05-09] MEDS ORDERED: ONDANSETRON 2MG/ML, 2ML IVPush ONE (00:30)
[2020-05-09] MEDS ORDERED: SODIUM CHLORIDE 0.9% 1,000ML IVBOLUS ONE (00:30)
[2020-05-09] MEDS ORDERED: VANCOMYCIN 2,500 MG in SODIUM CHLORIDE 0.9% 500 ML IV ONE (00:30)
[2020-05-09] MEDS ORDERED: VANCOMYCIN PER PHARMACY MC ONE (00:30)
--- NOTE | 2020-05-09 00:46 | NUR ---
GRICEL RN AT BEDSIDE TO PERFORM US GUIDED IV DUE TO PATIENT REFUSING IV TO BE PLACED WITHOUT USE OF US
[2020-05-09 00:51] LABS: INTERNATIONAL NORMALIZED RATIO 1.02 (0.93-1.1); PROTHROMBIN TIME 10.9 Seconds (9.6-11.5)
[2020-05-09 00:52] LABS: ALANINE AMINOTRANSFERASE 46 U/L (12-78); ALBUMIN 3.1 g/dL (3.4-5.0); ANION GAP 10 mmol/L (5-15); CALCIUM 7.7 mg/dL (8.5-10.1); CHLORIDE 105 mmol/L (98-107); CREATININE 0.79 mg/dL (0.7-1.3)
[2020-05-09 00:55] LABS: BASOPHILS % (AUTO) 1 % (0-1); EOSINOPHILS % (AUTO) 2 % (1-7); LYMPHOCYTES % (AUTO) 15 % (22-44); MEAN CORPUSCULAR HEMOGLOBIN 31.5 pg (27.5-34.5); MEAN CORPUSCULAR HGB CONC 34.2 g/dL (33.2-36.2); MEAN PLATELET VOLUME 7.7 fL (7.4-10.4); MONOCYTES % (AUTO) 7 % (2-9); NEUTROPHILS % (AUTO) 76 % (42-75); PLATELET COUNT 193 x10^3/uL (130-400); RED BLOOD COUNT 4.18 x10^6/uL (4.38-5.82); RED CELL DISTRIBUTION WIDTH 16.5 % (9.4-14.8)
[2020-05-09 00:56] LABS: ALKALINE PHOSPHATASE 178 U/L (45-117); BILIRUBIN,TOTAL 1.2 mg/dL (0.2-1.0); TOTAL PROTEIN 8.1 g/dL (6.4-8.2); TROPONIN I < 0.015 ng/mL (0.000-0.045)
[2020-05-09] MEDS ORDERED: ONDANSETRON 2MG/ML, 2ML ONE (01:08)
[2020-05-09] MEDS ORDERED: MORPHINE SULFATE 4 MG/ML, 1ML ONE (01:08)
[2020-05-09] MEDS ORDERED: CEFTRIAXONE PMX 1GM/50ML 50 ML ONE (01:09)
[2020-05-09 01:25] LABS: MD SCAN
--- NOTE | 2020-05-09 01:30 | NUR ---
PATIENT RESTING IN BED IN NAD. CALL ORTEGA IN REACH. URINAL ON BED RAIL. SAFETY MAINTAINED. WILL CONTINUE TO MONITOR.
--- NOTE | 2020-05-09 01:42 | NUR ---
REPORT GIVEN TO GRICEL HO FOR LUNCH RELIEF
--- NOTE | 2020-05-09 02:29 | NUR ---
REPORT GIVEN TO NAYANA HO ON 3NE
[2020-05-09] MEDS ORDERED: ACETAMINOPHEN 325 MG TABLET PO PRN (02:30)
[2020-05-09] MEDS ORDERED: hydrALAzine 20 MG/ML, 1ML IVPush PRN (02:30)
[2020-05-09] MEDS ORDERED: PROMETHAZINE 25 MG/ML, 1ML IM PRN (02:30)
[2020-05-09] MEDS ORDERED: GABAPENTIN 300 MG CAPSULE PO PRN (02:30)
[2020-05-09] MEDS ORDERED: VANCOMYCIN PER PHARMACY MC PRN (02:30)
[2020-05-09] MEDS ORDERED: PHARMACOKINETIC CONSULTATION MC ONE (03:00)
[2020-05-09] MEDS ORDERED: PHARMACOKINETIC MONITORING MC PRN (03:00)
[2020-05-09 03:08] VITALS: BP 142/88
[2020-05-09 03:42] LABS: MICROSCOPIC INDICATED
[2020-05-09 03:53] VITALS: BP_SYST 142; BP_DIAS 88; BP_DIAS 98
[2020-05-09] MEDS: OXYcodone IR 5MG TABLET PO PRN ×4 (04:14→21:00)
[2020-05-09 06:52] VITALS: BP 163/76
[2020-05-09] MEDS: FINASTERIDE 5 MG TABLET PO SCH (09:11)
[2020-05-09] MEDS: FUROSEMIDE 40 MG/4 ML IV SCH ×2 (09:11→16:47)
[2020-05-09] MEDS: THIAMINE 100MG TABLET PO/NG SCH (09:11)
[2020-05-09] MEDS: POTASSIUM CHLORIDE 20 MEQ TAB.ER.PRT PO SCH (09:12)
[2020-05-09] MEDS: TAMSULOSIN 0.4 MG CAP.ER.24H PO SCH (09:12)
[2020-05-09] MEDS: APIXABAN 5 MG TABLET PO SCH ×2 (09:12→21:31)
[2020-05-09] MEDS: VANCOMYCIN 2,200 MG in SODIUM CHLORIDE 0.9% 500 ML IV SCH (12:17)
[2020-05-09 12:43] VITALS: BP 152/75
[2020-05-09 19:23] VITALS: BP 137/77
[2020-05-09] MEDS: ATORVASTATIN 40 MG TABLET PO SCH (21:31)
[2020-05-10 00:27] VITALS: BP 162/69
[2020-05-10] MEDS: VANCOMYCIN 2,200 MG in SODIUM CHLORIDE 0.9% 500 ML IV SCH ×3 (00:36→23:47)
[2020-05-10] MEDS: OXYcodone IR 5MG TABLET PO PRN ×5 (01:10→20:04)
[2020-05-10] MEDS: CEFTRIAXONE PMX 1GM/50ML 50 ML IV SCH (03:10)
[2020-05-10 05:59] LABS: BASOPHILS % (AUTO) 1 % (0-1); EOSINOPHILS % (AUTO) 3 % (1-7); LYMPHOCYTES % (AUTO) 27 % (22-44); MEAN CORPUSCULAR HEMOGLOBIN 31.8 pg (27.5-34.5); MEAN CORPUSCULAR HGB CONC 34.3 g/dL (33.2-36.2); MEAN PLATELET VOLUME 7.1 fL (7.4-10.4); MONOCYTES % (AUTO) 13 % (2-9); NEUTROPHILS % (AUTO) 56 % (42-75); PLATELET COUNT 156 x10^3/uL (130-400); RED BLOOD COUNT 3.72 x10^6/uL (4.38-5.82); RED CELL DISTRIBUTION WIDTH 15.9 % (9.4-14.8)
[2020-05-10 06:01] LABS: MD NO
[2020-05-10 06:12] LABS: ANION GAP 8 mmol/L (5-15); CALCIUM 7.7 mg/dL (8.5-10.1); CHLORIDE 104 mmol/L (98-107); CREATININE 0.75 mg/dL (0.7-1.3)
[2020-05-10 07:18] VITALS: BP 150/78
[2020-05-10] MEDS: FINASTERIDE 5 MG TABLET PO SCH (08:06)
[2020-05-10] MEDS: THIAMINE 100MG TABLET PO/NG SCH (08:06)
[2020-05-10] MEDS: APIXABAN 5 MG TABLET PO SCH ×2 (08:06→19:58)
[2020-05-10] MEDS: FUROSEMIDE 40 MG/4 ML IV SCH ×2 (08:07→16:52)
[2020-05-10] MEDS: TAMSULOSIN 0.4 MG CAP.ER.24H PO SCH (08:07)
[2020-05-10] MEDS: POTASSIUM CHLORIDE 20 MEQ TAB.ER.PRT PO SCH (08:07)
[2020-05-10 12:26] VITALS: BP 183/76
[2020-05-10] MEDS ORDERED: BUPR150F3 SL (12:42)
[2020-05-10 15:21] VITALS: BP 150/72
[2020-05-10] MEDS: BUPRENORPHINE 150 MCG BC SCH (16:52)
[2020-05-10 19:44] VITALS: BP 156/70
[2020-05-10] MEDS: ATORVASTATIN 40 MG TABLET PO SCH (19:58)
[2020-05-11 00:33] VITALS: BP 177/97
[2020-05-11] MEDS: OXYcodone IR 5MG TABLET PO PRN ×5 (00:48→20:47)
[2020-05-11 01:15] VITALS: BP 163/78
[2020-05-11] MEDS: CEFTRIAXONE PMX 1GM/50ML 50 ML IV SCH (03:06)
[2020-05-11] MEDS: BUPRENORPHINE 150 MCG BC SCH ×2 (05:30→17:53)
[2020-05-11 07:16] VITALS: BP 165/77
[2020-05-11] MEDS: FUROSEMIDE 40 MG/4 ML IV SCH (07:54)
[2020-05-11] MEDS: APIXABAN 5 MG TABLET PO SCH ×2 (07:55→20:41)
[2020-05-11] MEDS: THIAMINE 100MG TABLET PO/NG SCH (07:55)
[2020-05-11] MEDS: TAMSULOSIN 0.4 MG CAP.ER.24H PO SCH (07:55)
[2020-05-11] MEDS: FINASTERIDE 5 MG TABLET PO SCH (07:55)
[2020-05-11] MEDS: POTASSIUM CHLORIDE 20 MEQ TAB.ER.PRT PO SCH (07:55)
[2020-05-11] MEDS: VANCOMYCIN 2,200 MG in SODIUM CHLORIDE 0.9% 500 ML IV SCH (12:33)
[2020-05-11 12:58] VITALS: BP 179/80
[2020-05-11] MEDS: FUROSEMIDE 40 MG TABLET PO SCH (16:41)
[2020-05-11] MEDS: CLINDAMYCIN 300 MG CAPSULE PO SCH ×2 (16:41→20:41)
[2020-05-11 19:39] VITALS: BP 147/77
[2020-05-11] MEDS: ATORVASTATIN 40 MG TABLET PO SCH (20:42)
[2020-05-12 00:52] VITALS: BP 162/65
[2020-05-12] MEDS: OXYcodone IR 5MG TABLET PO PRN ×4 (01:47→22:00)
[2020-05-12] MEDS: BUPRENORPHINE 150 MCG BC SCH ×2 (05:32→17:35)
[2020-05-12 07:32] VITALS: BP 142/63
[2020-05-12] MEDS: FINASTERIDE 5 MG TABLET PO SCH (10:05)
[2020-05-12] MEDS: APIXABAN 5 MG TABLET PO SCH ×2 (10:05→20:09)
[2020-05-12] MEDS: THIAMINE 100MG TABLET PO/NG SCH (10:05)
[2020-05-12] MEDS: CLINDAMYCIN 300 MG CAPSULE PO SCH ×3 (10:05→20:09)
[2020-05-12] MEDS: POTASSIUM CHLORIDE 20 MEQ TAB.ER.PRT PO SCH ×2 (10:06→10:08)
[2020-05-12] MEDS: TAMSULOSIN 0.4 MG CAP.ER.24H PO SCH (10:06)
[2020-05-12] MEDS: FUROSEMIDE 40 MG TABLET PO SCH ×2 (10:06→17:14)
[2020-05-12] MEDS ORDERED: FURO40TA6 PO (11:37)
[2020-05-12 13:09] VITALS: BP 149/72
[2020-05-12 19:15] VITALS: BP 127/84
[2020-05-12] MEDS: ATORVASTATIN 40 MG TABLET PO SCH (20:09)
[2020-05-13 00:21] VITALS: BP 138/71
[2020-05-13] MEDS: OXYcodone IR 5MG TABLET PO PRN ×5 (06:27→21:55)
[2020-05-13 07:31] VITALS: BP 162/78
[2020-05-13] MEDS: BUPRENORPHINE 150 MCG BC SCH ×2 (08:00→18:00)
[2020-05-13] MEDS: THIAMINE 100MG TABLET PO/NG SCH (08:07)
[2020-05-13] MEDS: CLINDAMYCIN 300 MG CAPSULE PO SCH ×3 (08:08→21:54)
[2020-05-13] MEDS: POTASSIUM CHLORIDE 20 MEQ TAB.ER.PRT PO SCH (08:08)
[2020-05-13] MEDS: TAMSULOSIN 0.4 MG CAP.ER.24H PO SCH (08:08)
[2020-05-13] MEDS: APIXABAN 5 MG TABLET PO SCH ×2 (08:08→21:54)
[2020-05-13] MEDS: FUROSEMIDE 40 MG TABLET PO SCH ×2 (08:08→17:12)
[2020-05-13] MEDS: FINASTERIDE 5 MG TABLET PO SCH (08:08)
[2020-05-13 15:23] VITALS: BP 130/76
[2020-05-13 19:58] VITALS: BP 134/65
[2020-05-13] MEDS: ATORVASTATIN 40 MG TABLET PO SCH (21:54)
[2020-05-14 01:31] VITALS: BP 114/70
[2020-05-14] MEDS: OXYcodone IR 5MG TABLET PO PRN ×5 (03:00→21:29)
[2020-05-14] MEDS: BUPRENORPHINE 150 MCG BC SCH ×2 (05:15→17:56)
[2020-05-14] MEDS: FINASTERIDE 5 MG TABLET PO SCH (07:49)
[2020-05-14] MEDS: POTASSIUM CHLORIDE 20 MEQ TAB.ER.PRT PO SCH (07:50)
[2020-05-14] MEDS: FUROSEMIDE 40 MG TABLET PO SCH ×2 (07:50→16:52)
[2020-05-14] MEDS: CLINDAMYCIN 300 MG CAPSULE PO SCH ×3 (07:50→21:29)
[2020-05-14] MEDS: THIAMINE 100MG TABLET PO/NG SCH (07:50)
[2020-05-14] MEDS: TAMSULOSIN 0.4 MG CAP.ER.24H PO SCH (07:50)
[2020-05-14] MEDS: APIXABAN 5 MG TABLET PO SCH ×2 (07:50→21:29)
[2020-05-14 08:32] VITALS: BP 121/75
[2020-05-14 12:06] VITALS: BP 144/80
[2020-05-14 20:00] VITALS: BP 125/60
[2020-05-14] MEDS: ATORVASTATIN 40 MG TABLET PO SCH (21:29)
[2020-05-15 00:10] VITALS: BP 130/69
[2020-05-15 01:41] VITALS: BP 125/61
[2020-05-15] MEDS: OXYcodone IR 5MG TABLET PO PRN ×4 (03:10→21:03)
[2020-05-15 05:07] LABS: BASOPHILS % (AUTO) 1 % (0-1); EOSINOPHILS % (AUTO) 3 % (1-7); LYMPHOCYTES % (AUTO) 35 % (22-44); MEAN CORPUSCULAR HGB CONC 33.5 g/dL (33.2-36.2); MEAN PLATELET VOLUME 7.9 fL (7.4-10.4); MONOCYTES % (AUTO) 21 % (2-9); NEUTROPHILS % (AUTO) 40 % (42-75); PLATELET COUNT 291 x10^3/uL (130-400); RED BLOOD COUNT 3.95 x10^6/uL (4.38-5.82); RED CELL DISTRIBUTION WIDTH 15.4 % (9.4-14.8)
[2020-05-15 05:13] LABS: ANION GAP 7 mmol/L (5-15); CALCIUM 8.7 mg/dL (8.5-10.1); CHLORIDE 101 mmol/L (98-107); CREATININE 1.16 mg/dL (0.7-1.3); MD NO
[2020-05-15] MEDS: BUPRENORPHINE 150 MCG BC SCH ×2 (05:16→18:00)
[2020-05-15 07:31] VITALS: BP 129/69
[2020-05-15] MEDS: CLINDAMYCIN 300 MG CAPSULE PO SCH ×3 (09:42→21:03)
[2020-05-15] MEDS: APIXABAN 5 MG TABLET PO SCH ×2 (09:42→21:03)
[2020-05-15] MEDS: THIAMINE 100MG TABLET PO/NG SCH (09:42)
[2020-05-15] MEDS: TAMSULOSIN 0.4 MG CAP.ER.24H PO SCH (09:43)
[2020-05-15] MEDS: FINASTERIDE 5 MG TABLET PO SCH (09:43)
[2020-05-15] MEDS: FUROSEMIDE 40 MG TABLET PO SCH ×2 (09:43→16:32)
[2020-05-15] MEDS: POTASSIUM CHLORIDE 20 MEQ TAB.ER.PRT PO SCH (09:43)
[2020-05-15 12:23] VITALS: BP 146/77
[2020-05-15 18:47] VITALS: BP 134/67
[2020-05-15] MEDS: ATORVASTATIN 40 MG TABLET PO SCH (21:03)
[2020-05-16 00:31] VITALS: BP 122/56
[2020-05-16] MEDS: BUPRENORPHINE 150 MCG BC SCH (06:00)
[2020-05-16] MEDS: OXYcodone IR 5MG TABLET PO PRN ×2 (06:44→13:15)
[2020-05-16 07:12] VITALS: BP 134/66
[2020-05-16] MEDS: POTASSIUM CHLORIDE 20 MEQ TAB.ER.PRT PO SCH (08:55)
[2020-05-16] MEDS: APIXABAN 5 MG TABLET PO SCH (08:55)
[2020-05-16] MEDS: THIAMINE 100MG TABLET PO/NG SCH (08:55)
[2020-05-16] MEDS: TAMSULOSIN 0.4 MG CAP.ER.24H PO SCH (08:55)
[2020-05-16] MEDS: CLINDAMYCIN 300 MG CAPSULE PO SCH (08:55)
[2020-05-16] MEDS: FINASTERIDE 5 MG TABLET PO SCH (08:55)
[2020-05-16] MEDS: FUROSEMIDE 40 MG TABLET PO SCH (08:56)
[2020-05-16 12:16] VITALS: BP 167/81
== END 2020-05-16 15:19 | disposition home or self-care (01) | DRG 872 ==
LOC: ED 05-09 00:25 → EDIP 05-09 02:13 → 3N 05-09 02:42
PROVIDERS: ADMIT Family Medicine; ATTEND Internal Medicine
DX: A41.9 Sepsis, unspecified organism (principal); L03.317 Cellulitis of buttock; Z68.41 Body mass index [BMI] 40.0-44.9, adult; D68.59 Other primary thrombophilia; L03.115 Cellulitis of right lower limb; L03.116 Cellulitis of left lower limb; Z68.42 Body mass index [BMI] 45.0-49.9, adult; N39.0 Urinary tract infection, site not specified; Z88.0 Allergy status to penicillin; E66.01 Morbid (severe) obesity due to excess calories; F10.10 Alcohol abuse, uncomplicated; G62.9 Polyneuropathy, unspecified; I11.0 Hypertensive heart disease with heart failure; I25.10 Atherosclerotic heart disease of native coronary artery without angina pectoris; I25.2 Old myocardial infarction; I50.9 Heart failure, unspecified; J44.9 Chronic obstructive pulmonary disease, unspecified; K21.9 Gastro-esophageal reflux disease without esophagitis; L30.9 Dermatitis, unspecified; N40.0 Benign prostatic hyperplasia without lower urinary tract symptoms; R62.7 Adult failure to thrive; Z66 Do not resuscitate; Z86.718 Personal history of other venous thrombosis and embolism; Z87.891 Personal history of nicotine dependence; Z91.14 Patient's other noncompliance with medication regimen; Z99.3 Dependence on wheelchair; L89.152 Pressure ulcer of sacral region, stage 2
CPT/HCPCS: 36415; 80048; 80053; 81001; 83605; 83735; 84145; 84484; 85025; 85610; 87040; 87086; 93005; 96365; 96375; 99285; G0378; J0696; J1940; J2405; J3370; J2270; J7030; J7040